=== PATIENT | female | born 1995 | race Caucasian/White ===

== ENCOUNTER 2021-08-05 04:15 | Outpatient (CLI) | payer BC, SELFPAY ==
[2021-08-05 08:49] LABS: HCG Quant, Pregnancy 4644 mIU/mL (1-3)
== END 2021-08-05 04:16 | disposition home or self-care (01) ==
LOC: LBO 04:15
PROVIDERS: PCP Pediatrics; Visit Provider Advanced Practice Midwife
DX: O20.0 Threatened abortion (principal)
CPT/HCPCS: 36415; 86850; 86900; 86901; 84702

== ENCOUNTER 2021-08-28 04:21 | Outpatient (CLI) | payer BC, SELFPAY ==
[2021-08-28 09:52] LABS: HCG Quant, Pregnancy 2 mIU/mL (1-3)
== END 2021-08-28 04:22 | disposition home or self-care (01) ==
LOC: LBO 04:21
PROVIDERS: Obstetrics & Gynecology; PCP Pediatrics; Visit Provider Obstetrics & Gynecology Gynecology
DX: O26.851 Spotting complicating pregnancy, first trimester (principal)
CPT/HCPCS: 36415; 84702

== ENCOUNTER 2022-04-15 03:55 | Outpatient (CLI) | payer BC, SELFPAY ==
[2022-04-15 15:32] LABS: Absolute Eosinophil Count 0.09 10^3/uL (0.0-0.7); Absolute Lymphocyte Count 1.88 10^3/uL (1.2-3.4); Absolute Monocyte Count 0.96 10^3/uL (0.1-0.8); Absolute Neutrophil Count 6.81 10^3/uL (1.2-6.7); Basophils % 0.5; Eosinophils % 0.9; HCT 36.6 % (36.0-46.0); HGB 13.3 g/dL (11.2-15.7); Immature Grans % 0.4; Lymphocytes % 19.1; MCH 30.3 pg (27.0-33.0); MCHC 36.3 % (32.0-36.0); MCV 83 fL (80-95); MPV 10.3 fL (8.0-11.0); Monocytes % 9.8; Neutrophils % 69.3; Platelet Count 219 10^3/uL (130-400); RBC 4.39 10^6/uL (3.93-5.22); RDW 11.7 % (11.7-14.6); RDW-SD 35.6 fL; WBC 9.83 10^3/uL (4.4-10.8)
[2022-04-15 15:33] LABS: Abs Immature Grans 0.04 10^3/uL (0.0-0.06); Absolute Basophil Count 0.05 10^3/uL (0.0-0.2)
[2022-04-15 16:32] LABS: Glucose,1 Hr (Glucola) 111 mg/dL (80-140)
[2022-04-15 17:25] LABS: TSH (W/Ref FT4) 0.86 uIU/mL (0.36-3.74)
[2022-04-16 09:27] LABS: Hepatitis B Surface Ag Negative (Negative)
[2022-04-16 09:49] LABS: HIV-1/2 Ag & Ab Screen Negative (Negative)
[2022-04-16 10:12] LABS: Hepatitis C Ab w Rflx HCV PCR Negative (Negative)
[2022-04-19 12:20] LABS: Varicella IgG Antibody Positive (See Note)
[2022-04-19 12:25] LABS: Rubella IgG Ab (UVM) Positive (See Note)
[2022-04-19 15:12] LABS: Syphilis IgG w/Reflex Nonreactive (Nonreactive)
== END 2022-04-15 03:56 | disposition home or self-care (01) ==
LOC: LBO 03:56
PROVIDERS: PCP Pediatrics; Visit Provider Advanced Practice Midwife
DX: Z34.91 Encounter for supervision of normal pregnancy, unspecified, first trimester
CPT/HCPCS: 36415; 82950; 86787; 86803; 86850; 86900; 86901; 87340; 87389; 84443; 85025; 86762; 86780

== ENCOUNTER 2022-04-15 16:07 | Outpatient (REF) | payer BC, SELFPAY ==
--- NOTE | 2022-04-15 14:30 | PAPFT_PTH ---
PATIENT: Clover Pride LOC: [facility] U#:[id number] AGE/SX: 26/F ROOM: RE04/15/[address]: Kelly Mcmahon : 1995 BED: DIS: 04/15/2022 SPEC #: [id number] RECD: 04/15/22 18:22 STATUS: EMMA REIris #: [id number] SHEYLA: 04/15/22 14:[address]: Kelly Mcmahon DEPT: [facility], [facility] Cytology RECD BY: Della Archer ENTERED: 04/15/22 18:22 SP TYPE: PAPFT EITAN DR: Luis Alfaro III Tissues: 1 - CX/ENDOCX FOR PAP SMEARS Procedures: PAP THIN PREP/UVM Screening Comments: [id number]
[2022-04-18 15:21] LABS: Chlamydia Result Negative (Negative); GC Result Negative (Negative)
[2022-04-21 11:27] LABS: Buprenorphine Negative ng/mL (Cutoff: 5.0); Norbuprenorphine Negative ng/mL (Cutoff: 2.5)
== END 2022-04-15 16:08 | disposition home or self-care (01) ==
LOC: LBN 16:07
PROVIDERS: PCP Pediatrics; Visit Provider Advanced Practice Midwife
DX: Z34.91 Encounter for supervision of normal pregnancy, unspecified, first trimester (principal); Z12.4 Encounter for screening for malignant neoplasm of cervix
CPT/HCPCS: 80307; 87491; 87591; 88142; 87086; 87480; 87510; 87660

== ENCOUNTER 2022-05-03 10:37 | Outpatient (CLI) | payer BC, SELFPAY ==
[2022-05-03 09:29] LABS: HCT 41.1 % (36.0-46.0); HGB 14.4 g/dL (11.2-15.7); MCH 30.3 pg (27.0-33.0); MCV 86 fL (80-95); MPV 10.3 fL (8.0-11.0); Platelet Count 218 10^3/uL (130-400); RBC 4.76 10^6/uL (3.93-5.22); RDW 12.4 % (11.7-14.6); RDW-SD 38.9 fL
--- OUTSIDE RECORDS SUMMARY | 2022-05-03 10:42 | XMS_ITS | Encounter Summary ---
:1995 Author Organization [facility] [place] [address] Care Team Providers Name Role Phone None Primary Care Provider Unavailable Reason for Visit Reason Comments Follow-up Consultation (Routine) - Closed Specialty Diagnoses / Procedures Referred By Contact Refer red To Contact Obstetrics and Diagnoses Family history of other congenital malformations, deformations and chromosomal abnormalities Kelly Mcmahon, [facility] Retail Security Professional 5l Gyne[address] Moss [address] [place] [phone] Referral ID Status Reason Start Date Expiration Date Visits V isits Requested Authorized [id number] Closed Consult, Test 04/15/2022 04/15/2023 1 1 & Treat PCP Updated and/or Approved Encounter Details Date Type Department Care Team Description 04/30/2022 Office Visit Obstetrics and Kamaljit Aquino Spontaneou s at 8 to 28 weeks gestation; Gynecology at [facility] MD Guevara Monochorionic diamniotic twin gestation in first trimester Formerly [facility] [address], [place], [place] [phone] Social History Tobacco Use Types Packs/Day Years Used Date Never Assessed Sex Assigned at Date Recorded Not on file documented as of this encounter Progress Notes Kamaljit Aquino MD - 04/30/2022 11:00 AM EDT Asked by Kelly Mcmahon CNM to see this 26 yo at 13 weeks by firm LMP with twins and hx/opulmonary stenosis for US and M visit. LMP: 01/29/22 POB: 08/2021 - sAB. Had bleeding. To the ED [facility] ED. Uncomplicated. US today: mono/di twins. CRL c/w 11 weeks. Absent cardiac activity for both twins. A/P: Missed in mono/di twins. CRL are lagging behind firm LMP dates by about 2 weeks. Likely embryonic demises from about 2 weeks ago. Alternatively, could be more recent, but preceded by slow growth. Recommend D+C. Would be great to attempt chromosomal evaluation of the products of conception, but significant chance that cells will not grow. MD Adelia Addendum: Discussed with Tish Castro CNM who will arrange for their practice to reach out to the patient to schedule. She reports that the patient is Rh positive. MD Adelia documented in this encounter Plan of Treatment Scheduled Referrals Name Type Priority Associated Diagnoses Order S chedule Referral to Outpatient Referral Routine Family history of Ord ered: Maternal macrocephaly 04/15/2022 Medicine documented as of this encounter Visit Diagnoses Diagnosis Spontaneous at 8 to 28 weeks ge station Monochorionic diamniotic twin gestation in first trimester documented in this encounter Care Teams Wood Heel Back Liner Relationship Specialty Start Date End Date None PCP - General 04/30/22 None documented as of this encounter
--- OUTSIDE RECORDS SUMMARY | 2022-05-03 10:42 | XMS_ITS | Encounter Summary ---
:1995 Author Organization [facility] [place] [address] Care Team Providers Name Role Phone None Primary Care Provider Unavailable Encounter Details Date Type Department Care Team Description 04/30/2022 Hospital Encounter Ultrasound at [facility] Breanna Lozano Twin gestation in [facility] MD Renetta first trimester, [address] [facility] unspecified multiple [place], [place] [address] gestation type [id number] OBSTETRICS & [phone] [place] [address] Social History Tobacco Use Types Packs/Day Years Used Date Never Assessed Sex Assigned at Date Recorded Not on file documented as of this encounter Plan of Treatment Not on filedocumented as of this encounter Procedures Procedure Name Priority Date/Time Associated Diagnosis Comme nts US OB VIABILITY Routine 04/30/2022 10:23 AM Twin gestation in Results for this MULTIPLE EDT first trimester, procedure a re in unspecified multiple the res ults gestation type section. documented in this encounter Results US OB Viability Multiple (04/30/2022 10:23 AM EDT) Anatomical Region Laterality Modality Pelvis Ultrasound Specimen (Source) Anatomical Collection Method Collection Time Re ceived Time Location / / Volume Laterality 04/30/2022 10:20 AM EDT Impressions 04/30/2022 10:35 AM EDT 1st Trimester Embryonic Demise Summary There is a twin gestation, monochorioni c diamniotic. No cardiac activity is seen within either fetus. [place]-rump length also measured small for dates by LMP. Results were discussed with the patient as well as called to the maternal- medicine ana m smith. Patient has an existing appointment following this examination. Thank you for letting us participate in the care of this patient. If you are a [facility] er and have any questions regarding this report, please contact the number above. For patients who have ques tions, please contact the [facility] that requested your imaging first. ? Eamon Serrano, Staff Génesis gao Electronically Signed Final Report ?? 10:34 am Narrative 04/30/2022 10:35 AM EDT OBSTETRICS REPORT ? (Signed Final 04/30/2022 10:34 am) PATIENT INFO: ID #: ? [id number] ?: ??[birth year] (26 yrs)(F) Name: ? NATHAN Santacruz CUTTING ? Visit Date: 04/30/2022 10:20 am PERFORMED BY: Performed By: ? José Miguel Mirza RDMS Attending: ?Zach BRAND, Bailee urbina Resident: ? Lluvia Guy MD Referred By: ?Breanna Ramos Location: ? [place] SERVICE(S) PROVIDED: UOBVIBMULT - Viability < 14 weeks - ??M shelli ? 94[address], [address] Gestation - Transabdominal - [id number] INDICATIONS: Weeks of gestation of not ? Z3A.00 specified twin gestation/ EVALUATION (FETUS A): Num Of Fetuses: ?2 Preg. Location: ?Intrauter ine Gest. Sac: ? Visuali zed Yolk Sac: ?Not vi sualized Pole: ?Visuali zed Cardiac Activity: ?Not observ ed Presentation: ?Too adeline banks to evaluate Placenta: ?Too ea adam to evaluate Membrane Desc: ?Monochorionic - Diamniotic Amniotic Fluid HARRY FV: ?Too early to evaluate BIOMETRY (FETUS A): CRL: ?38.4 ??mm ? G.Age: ?? 10w 5d ?TEOFILO: ?? 11/21/22 EVALUATION (FETUS B): Num Of Fetuses: ?2 Preg. Location: ?Intrauter ine Gest. Sac: ? Visuali zed Yolk Sac: ?Not vi sualized Pole: ?Visuali zed Cardiac Activity: ?Not observ ed Presentation: ?Too adeline y to evaluate Placenta: ?Too ea rly to evaluate Membrane Desc: ?Monochorionic - Diamniotic Amniotic Fluid HARRY FV: ?Too early to evaluate BIOMETRY (FETUS B): CRL: ?41.0 ??mm ? G.Age: ?? 11w 0d ?TEOFILO: ?? 11/19/22 CERVIX UTERUS ADNEXA: Right Ovary Size(cm) ? 2.6 ??x ?? 1.2 ?x ??1.4 ? Vol(ml): ??2.3 Visualized Left Ovary Size(cm) ? 1.4 ??x ?? 1.7 ?x ??2.2 ? Vol(ml): ??2.7 Visualized Cul De Sac No fluid seen Procedure Note Eamon Serrano MD - 04/30/2022Format ting of this note might be different from the original. OBSTETRICS REPORT (Signed Final 022 10:34 am) PATIENT INFO: ID #: [id number] : [birth year] (26 y rs)(F) Name: NATHAN Santacruz LAURA Visit Date: 04/03 10:20 am PERFORMED BY: Performed By: Cecile Mirza RDMS Attending: Eamon Serrano MD Resident: Lluvia Guy MD Referred By: Breanna LOZANO Location: [place] SERVICE(S) PROVIDED: UOBVIBMULT - Viability < 14 weeks - Rupinder tiple 20222, [address] Gestation - Transabdominal - [id number] INDICATIONS: Weeks of gestation of not Z3A .00 specified twin gestation/ EVALUATION (FETUS A): Num Of Fetuses: 2 Preg. Location: Intrauterine Gest. Sac: Visualized Yolk Sac: Not visualized Pole: Visualized Cardiac Activity: Not observed Presentation: Too early to evaluate Placenta: Too early to evaluate Membrane Desc: Monochorionic - Diamniot ic Amniotic Fluid HARRY FV: Too early to evaluate BIOMETRY (FETUS A): CRL: 38.4 mm G.Age: 10w 5d TEOFILO: 3 EVALUATION (FETUS B): Num Of Fetuses: 2 Preg. Location: Intrauterine Gest. Sac: Visualized Yolk Sac: Not visualized Pole: Visualized Cardiac Activity: Not observed Presentation: Too early to evaluate Placenta: Too early to evaluate Membrane Desc: Monochorionic - Diamniot ic Amniotic Fluid HARRY FV: Too early to evaluate BIOMETRY (FETUS B): CRL: 41.0 mm G.Age: 11w 0d TEOFILO: 3 CERVIX UTERUS ADNEXA: Right Ovary Size(cm) 2.6 x 1.2 x 1.4 Vol(ml): 2.3 Visualized Left Ovary Size(cm) 1.4 x 1.7 x 2.2 Vol(ml): 2.7 Visualized Cul De Sac No fluid seen IMPRESSION 1st Trimester Embryonic Demise Summary There is a twin gestation, monochorioni c diamniotic. No cardiac activity is seen within either fetus. [place]-rump length also measured small for dates by LMP. Results were discussed with the patient as well as called to the maternal- medicine ana m smith. Patient has an existing appointment following this examination. Thank you for letting us participate in the care of this patient. If you are a [facility] er and have any questions regarding this report, please contact the number above. For patients who have ques tions, please contact the [facility] professio nal that requested your imaging first. Eamon Serrano, Staff Physician Electronically Signed Final Report 04/30 10:34 am E Renetta Lozano MD [facility] OB ORDERABLES documented in this encounter Visit Diagnoses Diagnosis Twin gestation in first trimester, unspe cified multiple gestation type documented in this encounter Care Teams Mobile Sales Expert Relationship Specialty Start Date End Date None PCP - General 04/30/22 None documented as of this encounter
--- OUTSIDE RECORDS SUMMARY | 2022-05-03 10:42 | XMS_ITS | Encounter Summary ---
:1995 Author Organization [facility] [place] [address] Care Team Providers Name Role Phone Angelina CRAIG MD, Luis Carlos Primary Care Provider [phone] Reason for Referral Consultation (Routine) - Closed Specialty Diagnoses / Procedures Referred By Contact Refer red To Contact Obstetrics and Diagnoses Family history of other congenital malformations, deformations and chromosomal abnormalities Kelly Mcmahon, [facility] [place] Head Nurse 5l Gynecology CNM [address] [place] [id number] Referral ID Status Reason Start Date Expiration Date Visits V isits Requested Authorized [id number] Closed Consult, Test 04/15/2022 04/15/2023 1 1 & Treat PCP Updated and/or Approved Encounter Details Date Type Department Care Team Description 04/15/2022 Transcribe Orders eDH Incoming Family Salome his tory of Referrals MESSI Mendoza macrocephaly [phone] [place] [address] [address] [place], [place] [phone] Social History Tobacco Use Types Packs/Day Years Used Date Never Assessed Sex Assigned at Date Recorded Not on file documented as of this encounter Plan of Treatment Scheduled Referrals Name Type Priority Associated Diagnoses Order S chedule Referral to Outpatient Referral Routine Family history of Ord ered: Maternal macrocephaly 04/15/2022 Medicine documented as of this encounter Visit Diagnoses Diagnosis Family history of macrocephaly documented in this encounter Care Teams Cold Saw Operator Relationship Specialty Start Date End Date Luis Alfaro III, MD PCP - General Pediatrics 04/15/22 04/29/[address] [place] [address] [place] [address] documented as of this encounter
--- OUTSIDE RECORDS SUMMARY | 2022-05-03 10:42 | XMS_ITS | Encounter Summary ---
:1995 Author Organization [facility] Address [facility] [place] [address] Care Team Providers Name Role Phone Angelina CRAIG MD, Luis Carlos Primary Care Provider Encounter Details Date Type Department Care Team Description 04/16/2022 Orders Only Obstetrics and Pschirrer, E Twin gestatio n in Gynecology at [facility] MD Renetta first trimester, [facility] uns pecified [place] [phone] OBSTETRICS & [phone] GYNECOLOGY [place] [id number] Social History Tobacco Use Types Packs/Day Years Used Date Never Assessed Sex Assigned at Date Recorded Not on file documented as of this encounter Plan of Treatment Not on filedocumented as of this encounter Results US OB Viability Multiple (04/30/2022 10:23 AM EDT) Anatomical Region Laterality Modality Pelvis Ultrasound Specimen (Source) Anatomical Collection Method Collection Time Re ceived Time Location / / Volume Laterality 04/30/2022 10:20 AM EDT Impressions 04/30/2022 10:35 AM EDT 1st Trimester Embryonic Demise Summary There is a twin gestation, monochorioni c diamniotic. No cardiac activity is seen within either fetus. [place]-rump length also measured small for dates by LMP. Results were discussed with the patient as well as called to the maternal- medicine ana m smith. Patient has an existing appointment following this examination. Thank you for letting us participate in the care of this patient. If you are a health care [facility] er and have any questions regarding this report, please contact the number above. For patients who have ques tions, please contact the [facility] that requested your imaging first. ? Eamon Serrano, Staff Génesis gao Electronically Signed Final Report ?? 10:34 am Narrative 04/30/2022 10:35 AM EDT OBSTETRICS REPORT ? (Signed Final 04/30/2022 10:34 am) PATIENT INFO: ID #: ? [id number] ?: ??[birth year] (26 yrs)(F) Name: ? NATHAN Santacruz CUTTING ? Visit Date: 04/30/2022 10:20 am PERFORMED BY: Performed By: ? José Miguel Mirza RDMS Attending: ?Zach BRAND, Bailee urbina Resident: ? Malena BRAND, [place] Referred By: ?Breanna CABEZAS [facility] Location: ? [place] SERVICE(S) PROVIDED: UOBVIBMULT - Viability < 14 weeks - ??M shelli ? 75050, [address]70 Gestation - Transabdominal - [id number] INDICATIONS: Weeks of gestation of not ? Z3A.00 specified twin gestation/ EVALUATION (FETUS A): Num Of Fetuses: ?2 Preg. Location: ?Intrauter ine Gest. Sac: ? Visuali zed Yolk Sac: ?Not vi sualized Pole: ?Visuali zed Cardiac Activity: ?Not observ ed Presentation: ?Too adeline banks to evaluate Placenta: ?Too sandeep medina to evaluate Membrane Desc: ?Monochorionic - Diamniotic [...] 022 10:34 am) PATIENT INFO: ID #: [id number] : [birth year] (26 y rs)(F) Name: NATHAN SANCHEZ Visit Date: 04/03 10:20 am PERFORMED BY: Performed By: Cecile Mirza RDMS Attending: Eamon Serrano MD Resident: Lluvia Guy MD Referred By: Breanna LOZANO Location: [place] SERVICE(S) PROVIDED: UOBVIBMULT - Viability < 14 weeks - Rupinder lamb [address]67[address], [address] Gestation - Transabdominal - [id number] INDICATIONS: Weeks of gestation of not Z3A [...] cardiac activity is seen within either fetus. [place]-rump length also measured small for dates by LMP. Results were discussed with the patient as well as called to the maternal- medicine ana m smith. Patient has an existing appointment following this examination. Thank you for letting us participate in the care of this patient. If you are a [facility] er and have any questions regarding this report, please contact the number above. For patients who have ques tions, please contact the [facility] profess[facility] nal that requested your imaging first. Eamon Serrano, Staff Physician Electronically Signed Final Report 04/30 10:34 am E Renetta [facility]oz[facility] documented in this encounter Visit Diagnoses Diagnosis Twin gestation in first trimester, unspe cified multiple gestation type Twin gestation in first trimester, unspe cified multiple gestation type documented in this encounter Care Teams Technical Support Assistant Relationship Specialty Start Date End Date Luis Alfaro III, MD PCP - General Pediatrics 04/15/22 04/29/[address] [place] [address] [place] [address] documented as of this encounter
--- OUTSIDE RECORDS SUMMARY | 2022-05-03 10:42 | XMS_ITS | Clinical Summary ---
:1995 Author Organization [facility] [place] [address] Care Team Providers Name Role Phone None Primary Care Provider Unavailable Allergies No known active allergies Encounters Date Type Specialty Care Team Description 04/30/2022 Office Visit Obstetrics and Kamaljit Aquinoou s at 8 to 28 weeks gestation; Gynecology MD Guevara Monochorionic d iamniotic twin gestation in first trimester 04/30/2022 Hospital Encounter Radiology Pschirrpooja, E Twin gest ation in MD Jocelynn first trimester , unspecified mul tiple gestation type 04/16/2022 Orders Only Obstetrics and Pscregina E Twin gestatio n in Gynecology MD Jocelynn first trimester , unspecified mul tiple gestation type 04/15/2022 Transcribe Orders Primary Care Salome Family his tory of Kelly, MESSI macrocephaly from Last 3 Months Social History Tobacco Use Types Packs/Day Years Used Date Never Assessed Sex Assigned at Date Recorded Not on file Plan of Treatment Health Maintenance Due Date Last Done Comments Covid-19 Vaccine (#1) 10/23/2000 HPV vaccine (1 - 2-dose series) 10/23/2006 HIV screen 10/23/2013 Hepatitis C Screening 10/23/2013 Tdap adult 10/23/2014 Tetanus vaccine 10/23/2014 PAP Smear 10/23/2016 Influenza (Flu) vaccine (1 of 1 - Influenza standard 04/01/2022 series) Procedures Procedure Name Priority Date/Time Associated Diagnosis Comme nts US OB VIABILITY Routine 04/30/2022 10:23 AM Twin gestation in Results for this MULTIPLE EDT first trimester, procedure a re in unspecified multiple the res ults gestation type section. from Last 3 Months Results US OB Viability Multiple (04/30/2022 10:23 AM EDT) Anatomical Region Laterality Modality Pelvis Ultrasound Specimen (Source) Anatomical Collection Method Collection Time Re ceived Time Location / / Volume Laterality 04/30/2022 10:20 AM EDT Impressions 04/30/2022 10:35 AM EDT 1st Trimester Embryonic Demise Summary There is a twin gestation, monochorioni c diamniotic. No cardiac activity is seen within either fetus. [place]-rump length also measured small for dates by LMP. Results were discussed with the patient as well as called to the maternal- medicine ana m smith. Patient has an existing appointment following this examination. Thank you for letting us participate in the care of this patient. If you are a [facility] er and have any questions regarding this report, please contact the number above. For patients who have ques tions, please contact the [facility] professio nal that requested your imaging first. ? Eamon Serrano, Staff Génesis gao Electronically Signed Final Report ?? 10:34 am Narrative 04/30/2022 10:35 AM EDT OBSTETRICS REPORT ? (Signed Final 04/30/2022 10:34 am) PATIENT INFO: ID #: ? [id number] ?: ??[birth year] (26 yrs)(F) Name: ? NATHAN Santacruz CUTTING ? Visit Date: 04/30/2022 10:20 am PERFORMED BY: Performed By: ? José Miguel Mirza RDMS Attending: ?Zach BRAND, Bailee urbina Resident: ? Malena BRAND, Lluvia Referred By: ?E JOCELYNN Lynn: ? [place] SERVICE(S) PROVIDED: UOBVIBMULT - Viability < 14 weeks - ??Neeta mraques ? [address], [address] Gestation - Transabdominal - [id number] INDICATIONS: Weeks of gestation of not ? [...] adeline banks to evaluate Placenta: ?Too ea rly to [...] 022 10:34 am) PATIENT INFO: ID #: [id number] : [birth year] (26 y rs)(F) Name: NATHAN SANCHEZ Visit Date: 04/03 10:20 am PERFORMED BY: Performed By: Cecile Mirza RDMS Attending: Eamon Serrano MD Resident: Lluvia Guy MD Referred By: Breanna CAB[facility]AS [facility] Location: [place] SERVICE(S) PROVIDED: UOBVIBMULT - Viability < 14 weeks - Rupinder wilsonle [address], [address] Gestation - Transabdominal - [id number] INDICATIONS: Weeks of gestation of not Z3A [...] cardiac activity is seen within either fetus. [place]-rump length also measured small for dates by LMP. Results were discussed with the patient as well as called to the maternal- medicine ana m smith. Patient has an existing appointment following this examination. Thank you for letting us participate in the care of this patient. If you are a [facility] er and have any questions regarding this report, please contact the number above. For patients who have ques tions, please contact the [facility] that requested your imaging first. Eamon Serrano, Staff Physician Electronically Signed Final Report 04/30 10:34 am E Jocelynn Cabrera MD IMG US OB ORDERABLES from Last 3 Months Insurance Payer Benefit Plan Subscriber ID Effective Dates Phone Address Type / Group [facility] [id number] 2021-Pres [phone] [address] [facility] [facility] ent [address] [facility] [id number] Care Teams Refuse Laborer Relationship Specialty Start Date End Date None PCP - General 04/30/22 None
--- OUTSIDE RECORDS SUMMARY | 2022-05-03 10:43 | XMS_ITS | Encounter Summary ---
:1995 Author Organization [facility] Address [address] [place] [address] Care Team Providers Name Role Phone Barb Corrales MD Primary Care Provider Encounter Details Date Type Department Care Team Description 11/17/2020 Lab Requisition [facility] Outr Resulting Lab, Pathology & Laboratory Provider [facility] [address] [place] [phone] Social History Tobacco Use Types Packs/Day Years Used Date Never Assessed Sex Assigned at Date Recorded Not on file documented as of this encounter Plan of Treatment Not on filedocumented as of this encounter Procedures Procedure Name Priority Date/Time Associated Comments Diagnosis CHLAMYDIA/N. Routine 11/17/2020 15:26 Results for this GONORRHOEAE AMPLIFIED EDT proced ure are in RNA, THINPREP the results section. documented in this encounter Results CHLAMYDIA/N. GONORRHOEAE AMPLIFIED RNA, THINPREP (11/17/2020 15:26 EDT) Pathologist Sig nature Gonococcus Result Negative Negative [facility] Chlamydia Result Negative Negative [facility] Specimen Pap Test - Cervix and/or Endocervix Performing Organization Address City/State/ZIP Code Phon e Number [facility] [address] [place] [address] SERVICES documented in this encounter Visit Diagnoses Not on filedocumented in this encounter Care Teams Log Chain Feeder Relationship Specialty Start Date End Date Barb Corrales MD PCP - General 11/09/[address] [place] [phone] documented as of this encounter
--- OUTSIDE RECORDS SUMMARY | 2022-05-03 10:43 | XMS_ITS | Encounter Summary ---
:1995 Author Organization [facility] Address [address] [place] [address] Care Team Providers Name Role Phone Barb Corrales MD Primary Care Provider Encounter Details Date Type Department Care Team Description 04/13/1999 Hospital Encounter [facility] MD Todd [address] [facility] [address] [place], [place] [id number] [place] [phone] (Wo rk) Social History Tobacco Use Types Packs/Day Years Used Date Never Assessed Sex Assigned at Date Recorded Not on file documented as of this encounter Plan of Treatment Not on filedocumented as of this encounter Visit Diagnoses Not on filedocumented in this encounter Care Teams Solo Truck Driver Relationship Specialty Start Date End Date Barb Corrales MD PCP - General 11/09/[address] [place] [phone] documented as of this encounter
--- OUTSIDE RECORDS SUMMARY | 2022-05-03 10:43 | XMS_ITS | Encounter Summary ---
:1995 Author Organization [facility] Address [address] [place] [address] Care Team Providers Name Role Phone Barb Corrales MD Primary Care Provider Encounter Details Date Type Department Care Team Description 04/15/2022 Lab Requisition [facility] Outr Resulting Lab, Pathology & Laboratory Provider [facility] [address] [place] [address] [phone] Social History Tobacco Use Types Packs/Day Years Used Date Never Assessed Sex Assigned at Date Recorded Not on file documented as of this encounter Plan of Treatment Not on filedocumented as of this encounter Procedures Procedure Name Priority Date/Time Associated Comments Diagnosis HIV 1/2 ANTIGEN AND Routine 04/15/2022 15:20 Resu lts for this ANTIBODY, 4TH EDT procedure are in GENERATION the results section. documented in this encounter Results HIV 1/2 ANTIGEN AND ANTIBODY, 4TH GENERATION (04/15/2022 15:20 EDT) HIV 1 and 2 NegativeComment: If Negative [facility] Antibody/p24 acute HIV-1 LABORATORY Antigen, 4th infection is SERVICES Generation suspected in a high risk patient, submit plasma specimen for HIV-1 RNA quantitation test. Specimen Blood - Venous blood (substance) Narrative [facility] - 04/16/2022 9:45 EDT Fourth Generation assay performed on the Siemens Centaur XPT. Performing Organization Address City/State/ZIP Code Phon e Number [facility] [address] [place] [address] SERVICES documented in this encounter Visit Diagnoses Not on filedocumented in this encounter Care Teams Fondant Machine Operator Relationship Specialty Start Date End Date Barb Corrales MD PCP - General 11/09/[address] [place] [phone] documented as of this encounter
--- OUTSIDE RECORDS SUMMARY | 2022-05-03 10:43 | XMS_ITS | Clinical Summary ---
:1995 Author Organization [facility] Address [address] [place] [address] Care Team Providers Name Role Phone Barb Corrales MD Primary Care Provider Encounters Date Type Specialty Care Team Description 04/16/2022 Lab Requisition Clinical Laboratory Kelly Mcmahon Encounter for other Radha, MESSI general examina tion 04/16/2022 Lab Requisition Clinical Laboratory Outr Resulting Lab, Provider 04/16/2022 Lab Requisition Clinical Laboratory Outr Resulting Lab, Provider 04/15/2022 Lab Requisition Clinical Laboratory Outr Resulting Lab, Provider 04/15/2022 Lab Requisition Clinical Laboratory Outr Resulting Lab, Provider from Last 3 Months Social History Tobacco Use Types Packs/Day Years Used Date Never Assessed Sex Assigned at Date Recorded Not on file Plan of Treatment Health Maintenance Due Date Last Done Comments COVID-19 Vaccine (#1) 04/25/1996 Hepatitis C Screen Completed 04/15/2022 Procedures Procedure Name Priority Date/Time Associated Diagnosis Comme nts HOLD SST Today 04/15/2022 15:20 Results for this EDT procedure are i n the results section. VARICELLA IGG Today 04/15/2022 15:20 Results fo r this ANTIBODY EDT procedure are i n the results section. RUBELLA IGG ANTIBODY Today 04/15/2022 15:20 Res ults for this EDT procedure are i n the results section. HEPATITIS B SURFACE Routine 04/15/2022 15:20 Resu lts for this ANTIGEN EDT procedure are i n the results section. HEPATITIS C AB W Routine 04/15/2022 15:20 Results for this REFLEX TO HCV RNA BY EDT procedu re are in PCR the results section. HIV 1/2 ANTIGEN AND Routine 04/15/2022 15:20 Resu lts for this ANTIBODY, 4TH EDT procedure are in GENERATION the results section. PAP TEST Today 04/15/2022 14:30 Encounter for other Resu lts for this EDT general examination procedur e are in the results section. CHLAMYDIA/N. Routine 04/15/2022 14:30 Results for this GONORRHOEAE EDT procedure are i n AMPLIFIED RNA the results section. from Last 3 Months Results HOLD SST (04/15/2022 15:20 EDT) Pathologist Sig nature Hold Hold [facility] Specimen Blood - Venous blood (substance) Performing Organization Address City/[facility]/ZIP Code Phon e Number [facility] [address] [place] [address] SERVICES HEPATITIS C AB W REFLEX TO HCV RNA BY PCR (04/15/2022 15:20 EDT) Pathologist Sig nature Hep C Antibody Negative Negative [facility] SERVICES Specimen Blood - Venous blood (substance) Performing Organization Address City/[facility]/ZIP Code Phon e Number [facility] [address] [place] [address] SERVICES RUBELLA IGG ANTIBODY (04/15/2022 15:20 EDT) Rubella IgG Ab PositiveComment: See Note [facility] Positive for IgG LABORATORY SERVICES antibodies to Rubella virus. Specimen Blood - Venous blood (substance) Performing Organization Address City/[facility]/ZIP Code Phon e Number [facility] [address] [place] [address] SERVICES HEPATITIS B SURFACE ANTIGEN (04/15/2022 15:20 EDT) Pathologist Sig nature Hep B Surface Ag Negative Negative [facility] Specimen Blood - Venous blood (substance) Performing Organization Address City/[facility]/ZIP Code Phon e Number [facility] [address] [place] [address] SERVICES VARICELLA IGG ANTIBODY (04/15/2022 15:20 EDT) Varicella IgG Ab PositiveComment: See Note [facility] Presence of LABORATORY SERVICES detectable Varicella Zoster virus IgG antibodies. Specimen Blood - Venous blood (substance) Performing Organization Address City/[facility]/ZIP Code Phon e Number [facility] [address] [place] [address] SERVICES HIV 1/2 ANTIGEN AND ANTIBODY, 4TH GENERATION (04/15/2022 15:20 EDT) HIV 1 and 2 NegativeComment: If Negative [facility] Antibody/p24 acute HIV-1 LABORATORY Antigen, 4th infection is SERVICES Generation suspected in a high risk patient, submit plasma specimen for HIV-1 RNA quantitation test. Specimen Blood - Venous blood (substance) Narrative [facility] - 04/16/2022 9:45 EDT Fourth Generation assay performed on the Siemens Centaur XPT. Performing Organization Address City/[facility]/ZIP Code Phon e Number [facility] [address] [place] [address] SERVICES PAP TEST (04/15/2022 14:30 EDT) Specimens A. Cervix and/or [facility] MEDICAL Endocervix , ThinPrep CENTER Imaging System with LABORATORY Manual Evaluation SERVICES Specimen Adequacy Satisfactory for [facility] MEDICAL Evaluation - CENTER transformation zone LABORATORY component present SERVICES General Negative for [facility] intraepithelial CENTER lesion or malignancy LABORATORY SERVICES Descriptive Shift in jessy [facility] MEDICAL Diagnosis present suggestive of CENTER bacterial vaginosis. LABORATORY SERVICES Attestation . [facility] signed by JAY Gagnon CT(ASCP) on SERVICES 04/19/2022 at 16 33 Clinical History See below [facility] Performing Lab [facility] Scanned Images [facility] Specimen Pap Test - Cervix and/or Endocervix Performing Organization Address City/State/ZIP Code Phon e Number [facility] [address] [place] [address] SERVICES CHLAMYDIA/N. GONORRHOEAE AMPLIFIED RNA (04/15/2022 14:30 EDT) Pathologist Sig nature Gonococcus Result Negative Negative [facility] Chlamydia Result Negative Negative [facility] Specimen Swab - Entire endocervix (body structure ) Performing Organization Address City/State/ZIP Code Phon e Number [facility] [address] [place] [address] SERVICES from Last 3 Months Insurance Payer Benefit Plan / Subscriber ID Effective Phone Address T ype Group Dates BCBS OOS [employer]BS [place] [id number] 2018-[facility]se [facility] Other [address] [place] [address] Advance Directives For more information, please contact: [phone] Documents on File Type Date Recorded Patient Reference Investigator Explanati on Advance Directives and Living Will Power of Experimental Rocket Sled Mechanic Care Teams Equipment Operat0R Relationship Specialty Start Date End Date Barb Corrales MD PCP - General 11/09/[address] [place] [phone]
--- OUTSIDE RECORDS SUMMARY | 2022-05-03 10:43 | XMS_ITS | Encounter Summary ---
:1995 Author Organization [facility] Address [address] [place] [address] Care Team Providers Name Role Phone Unavailable Primary Care Provider Unavailable Encounter Details Date Type Department Care Team Description 12/07/2007 Before PRISM Converted [facility] - Edvin Chen Visit (Maple) Maple conversion MD Todd [address] [facility] [address] [place], [place] [id number] [place] [phone] Social History Tobacco Use Types Packs/Day Years Used Date Never Assessed Sex Assigned at Date Recorded Not on file documented as of this encounter Progress Notes Alen Chen MD - 04/28/2009 1513 EDT PROGRESS/FOLLOWUP NOTE - 12/07/2007 December 07, 2007 Luis Alfaro MD [address] [place], [place] [id number] Dear Nacho: I saw Clover on December 07, 2007 in our [facility] clinic. 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 She presented with a murmur, and an echocardiogram done in 2000 showed a very minor gradient across the pulmonary valve with a little more pulmonary regurgitation than normal, but no other abnormalities noted. Since she was last seen, she has continued to be in excellent health. She is physically active and participates in softball and basketball. She says she kept up well during basketball season and had nodifficulty with more vigorous exertion. She does not have a history of chronic coughing, wheezing, or other respiratory problems. She denies chest pain, palpitations, dizziness or fainting. She has hadno cyanosis or pallor noted. She has been on no medications routinely. She came to [facility] withher father, who has no concerns about her general health. She is currently in the sixth grade and doing well in school. On physical examination today, her height was 160.4 cm, and her weight 58.3 kg. Her blood pressure was 120/61 in the right arm. Her pulse was 68, and her resting respiratory rate was 16. Her femoral pulses felt normal and her liver was not enlarged. No abdominal masses were appreciated. Her precordiumwas quiet.Her lungs were clear. Her neck veins were not distended. Her lips and nail beds were pink.I did not think her thyroid felt enlarged. She had no clubbing or peripheral edema. She had a normalfirst heart sound, followed by a soft variable ejection click.Her second heart sound split normally.She had virtually no murmur. Her electrocardiogram showed what was probably sinus rhythm, with normal precordial forces and some left-sided T-wave flattening. 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 Basedon new recommendations, she would no longer need SBE prophylaxis prior to dental procedures. I wouldlike a final listen in about 4-5 years, but would anticipate discharging her from clinic at that time. I think it is unlikely that her minor valve abnormality will ever be a clinical problem for her and it is not likely to change with time. All of this information was conveyed to Clover and her father. If you have any questions about [facility] visit or have any concerns about her examination in the future do not hesitate to let us know. Total time spent with patient was 25 minutes; over 50% of the time was spent face to face on counseling and managing her care as described above. Sincerely, Signed by Alen Chen MD 12/08/2007 08:46 Alen Chen MD Division of Pediatric Cardiology [phone] - Alen Chen MD P - DIS Job ID: [id number] Doc ID: [id number] cc: Luis Alfaro MD documented in this encounter Plan of Treatment Not on filedocumented as of this encounter Visit Diagnoses Not on filedocumented in this encounter
--- OUTSIDE RECORDS SUMMARY | 2022-05-03 10:43 | XMS_ITS | Encounter Summary ---
:1995 Author Organization [facility] Address [address] [place] [address] Care Team Providers Name Role Phone Barb Corrales MD Primary Care Provider Encounter Details Date Type Department Care Team Description 10/19/2019 [facility] examination (general) (routine) without abnormal findings; Pathology & Migel Orta MD Encounter for screening for infections w ith a predominantly sexual mode of transmission; Laboratory Medicine 81 MEDICAL Encoun r for screening for other infectious and parasitic diseases; - [facility] Encounter for screening for human papill omavirus (HPV) [address] [place] [phone] Social History Tobacco Use Types Packs/Day Years Used Date Never Assessed Sex Assigned at Date Recorded Not on file documented as of this encounter Plan of Treatment Not on filedocumented as of this encounter Procedures Procedure Name Priority Date/Time Associated Comments Diagnosis PAP TEST Today 10/19/2019 16:16 Results for this EDT procedure are i n the results section. HUMAN PAPILLOMAVIRUS Today 10/19/2019 16:16 Res ults for this (HPV) DETECTION-HIGH EDT procedu re are in RISK TYPES the results section. documented in this encounter Results HUMAN PAPILLOMAVIRUS (HPV) DETECTION-HIGH RISK TYPES (10/19/2019 16:16 EDT) Human Papillomavirus NegativeComment: No Negative [facility] MED[facility] (HPV) Detection-High E6 or E7 mRNA is CENTER LABORATOR Y Types detected from HPV SERVICES types 16,18,31,33,35,39,45 ,51,52,56,58,59,66, and 68 by roving or yarn color checker mediated amplification. Specimen Pap Test - Cervix and/or Endocervix Performing Organization Address City/[facility]/ZIP Code Phon e Number [facility] [address] [place] [address] SERVICES PAP TEST (10/19/2019 16:16 EDT) Specimens A. Cervix and/or [facility] MEDICAL Endocervix, ThinPrep CENTER Imaging System with LABORATORY Manual Evaluation SERVICES Specimen Adequacy Satisfactory for [facility] MEDICAL Evaluation - CENTER transformation zone LABORATORY component present SERVICES General Epithelial Cell [facility] MEDICAL Categorization Abnormality CENTER LABORATORY SERVICES Descriptive Squamous Cell [facility] MEDICAL Diagnosis Abnormality - CENTER Atypical squamous LABORATORY cells, undetermined SERVICES significance (ASC-US). Attestation . [facility] CENTER signed by LABORATORY Brenden Arriaga MD on 020 at 1412 Educational Comments [facility] recommends following A SCCP's 2012 Updated Consensus Guidelines for the Management of Abnormal Cervical Cancer Screening Tests and Cancer Precursors (JLGTD, 2013; 17(5):S1-S27). Consensus guidelines are available online at www.asccp.org. [facility] Clinical History see order comments [facility] HPV The result for the Human Pap illomavirus (HPV) Detection-High Risk Types is Negative. No E6 or E7 mRNA is detected from HPV types 16,18,31,33,35,39,45,51,52,56,58,59,66, and 68 by roving or yarn color checker mediated [facility] MEDICAL amplification.Testing was pe rformed on specimen [id number] and was resulted on 10/30/2019 1410 EDT by TO, LAB INSTRUMENT RESULTS IN [facility] Scanned Images [facility] Specimen Pap Test - Cervix and/or Endocervix Performing Organization Address City/[facility]/ZIP Code Phon e Number [facility] [address] [place] [address] SERVICES documented in this encounter Visit Diagnoses Diagnosis Encounter for gynecological examination (general) (routine) without abnormal findings Encounter for screening for infections w ith a predominantly sexual mode of transmission Encounter for screening for other infect ious and parasitic diseases Encounter for screening for human papill omavirus (HPV) Special screening examination for human papillomavirus (HPV) documented in this encounter Care Teams Director Of Scout Work Relationship Specialty Start Date End Date Barb Corrales MD PCP - General 11/09/[address] [place] [phone] documented as of this encounter
--- OUTSIDE RECORDS SUMMARY | 2022-05-03 10:43 | XMS_ITS | Encounter Summary ---
:1995 Author Organization [facility] Address [address] [place] [address] Care Team Providers Name Role Phone Barb Corrales MD Primary Care Provider Encounter Details Date Type Department Care Team Description 04/16/2022 Lab Requisition [facility] Outr Resulting Lab, Pathology & Laboratory Provider [facility] [address] [place], [place] [phone] Social History Tobacco Use Types Packs/Day Years Used Date Never Assessed Sex Assigned at Date Recorded Not on file documented as of this encounter Plan of Treatment Not on filedocumented as of this encounter Procedures Procedure Name Priority Date/Time Associated Comments Diagnosis CHLAMYDIA/N. Routine 04/15/2022 14:30 Results for this GONORRHOEAE AMPLIFIED EDT proced ure are in RNA the results section. documented in this encounter Results CHLAMYDIA/N. GONORRHOEAE AMPLIFIED RNA (04/15/2022 14:30 EDT) Pathologist Sig nature Gonococcus Result Negative Negative [facility] Chlamydia Result Negative Negative [facility] Specimen Swab - Entire endocervix (body structure ) Performing Organization Address City/State/ZIP Code Phon e Number [facility] [address] [place] [address] SERVICES documented in this encounter Visit Diagnoses Not on filedocumented in this encounter Care Teams Women Nurse Relationship Specialty Start Date End Date Barb Corrales MD PCP - General 11/09/[address] [place] [phone] (work) documented as of this encounter
--- OUTSIDE RECORDS SUMMARY | 2022-05-03 10:43 | XMS_ITS | Encounter Summary ---
:1995 Author Organization [facility] Address [address] [place] [address] Care Team Providers Name Role Phone Barb Corrales MD Primary Care Provider Encounter Details Date Type Department Care Team Description 11/17/2020 Lab Requisition [facility] [address] ter for gynecological examination (general) (routine) without abnormal findings; Pathology & Migel Orta MD Encounter for screening for human papill omavirus (HPV); Laboratory Medicine 81 MEDICAL Cervical high risk human papillomavirus (HPV) DNA test positive - [facility] [address] [place] [phone] Social History Tobacco Use Types Packs/Day Years Used Date Never Assessed Sex Assigned at Date Recorded Not on file documented as of this encounter Plan of Treatment Not on filedocumented as of this encounter Procedures Procedure Name Priority Date/Time Associated Diagnosis Comme nts PAP TEST Today 11/17/2020 15:26 EDT Results for this procedure are i n the results section . documented in this encounter Results PAP TEST (11/17/2020 15:26 EDT) Specimens A. Cervix and/or [facility] Endocervix , ThinPrep CENTER Imaging System with LABORATORY Manual Evaluation SERVICES Specimen Adequacy Satisfactory for [facility] Evaluation - CENTER transformation zone LABORATORY component present SERVICES General Negative for [facility] MEDICAL Categorization intraepithelial CENTER lesion or malignancy LABORATORY SERVICES Descriptive Shift in jessy [facility] Diagnosis present suggestive of CENTER bacterial vaginosis. LABORATORY SERVICES Attestation . [facility] Electron[facility] CENTER signed by Jesus urbina LABORATORY GIOVANNI Townsend(A SCP) SERVICES on 11/21/2020 at 1247 Clinical History Clinical History, Signs, Sym ptoms, Chief Complaint, Pertaining to This Order: See below [facility] Other Clinical History/Order Comments: 10/18 /+ CENTER LABORATORY SERVICES Performing Lab [facility] Scanned Images [facility] SERVICES Specimen Pap Test - Cervix and/or Endocervix Performing Organization Address City/State/ZIP Code Phon e Number [facility] [address] [place] [address] SERVICES documented in this encounter Visit Diagnoses Diagnosis Encounter for gynecological examination (general) (routine) without abnormal findings Encounter for screening for human papill omavirus (HPV) Special screening examination for human papillomavirus (HPV) Cervical high risk human papillomavirus (HPV) DNA test positive documented in this encounter Care Teams Top Collar Baster Relationship Specialty Start Date End Date Barb Corrales MD PCP - General 11/09/[address] [place] [phone] documented as of this encounter
--- OUTSIDE RECORDS SUMMARY | 2022-05-03 10:43 | XMS_ITS | Encounter Summary ---
:1995 Author Organization [facility] Address [address] [place] [address] Care Team Providers Name Role Phone Barb Corrales MD Primary Care Provider Encounter Details Date Type Department Care Team Description 11/11/2011 Documentation Visit [facility] Edvin Chen Pediatric Cardiology - MD Todd [place] [address] [place] [address] [phone] (Wo rk) Social History Tobacco Use Types Packs/Day Years Used Date Never Assessed Sex Assigned at Date Recorded Not on file documented as of this encounter Progress Notes Alen Chen MD - 11/12/2011 1056 EDT PROGRESS/FOLLOWUP NOTE - 11/11/2011 Luis Alfaro MD [address] [place] [phone] Dear Nacho: I saw Clover on 11/11/2011. She is now a 16-year-old who I have seen since infancy when she presentedwith mild valvar pulmonic stenosis. Interestingly, over the first few years of life, her estimated gradient across her pulmonary valve decreased. When last seen 4 years ago, she had virtually no murmurand had no evidence of significant residual hemodynamic abnormalities. In the interim, she continues to be in excellent health. She is an active girl who participates in basketball and softball without difficulty. She played basketball this winter and had no difficulty keeping up with her teammates. Specifically, she does not feel that she gets unusually tired or short of breath with routine activity or with significant exertion. She has had no chronic coughing, wheezing or other respiratory difficulties. She denies chest pain, palpitations, dizziness or fainting. She has had no major illnesses or hospitalizations. She has been on no medications routinely. The only medical issue for her has been frequent headaches. She came to today's visit with her mother, who is also quite happy with how she is doing and has no specific cardiac concerns. On physical examination today, her height was 168 cm, the 75th to 90th percentile, and her weight 71kg, around the 90th percentile. Her blood pressure was 120/76 in the right arm. Her pulse was 56 andher resting respiratory rate was 16. Her femoral pulses felt normal and her extremities were well perfused. Her abdomen was soft and nontender. Her liver was not enlarged. Her precordium was quiet. Herlungs were clear. Her lips and nail beds were pink. She had no clubbing or peripheral edema. She hada normal first heart sound and a physiologically-split second heart sound of normal intensity. I didnot detect a valve click. She had no significant murmurs. Her electrocardiogram was normal. A 2-dimensional Echo and Doppler study was performed. This demonstrated essentially normal intracardiac anatomy. She has a little more than mild pulmonary regurgitation, probably reflective of a minimally abnormal valve, but she has no pulmonary stenosis and her main and branch pulmonary arteries appea red normal in size. In summary, while Clover's pulmonary valve may be minimally abnormal, she does not have a significant murmur at this time and, since she is fully grown, I would not anticipate that there will be any change in her cardiac status going forward. I do not think there is any reason for me to see her routinely or for her to have any regular cardiac evaluation. We would be happy to forward her records at any point, if there are some questions regarding her cardiac status. She can remain completely unrestricted in activity and requires no medications related to her heart. She should not need SBE prophylaxis. I have not scheduled a return visit with us. If you have any questions about today's visit or any concern about her heart at any future time, do not hesitate to let us know. This information was reviewed with Clover and her mother. Sincerely, Electronically Signed by Alen Chen MD 11/18/2011 14:25 Alen Chen MD Division of Pediatric Cardiology [phone] - Alen Chen MD A - JLP Job ID: SM Doc ID: [id number] Ext Doc ID: [id number] cc: Luis Alfaro MD documented in this encounter Plan of Treatment Not on filedocumented as of this encounter Visit Diagnoses Not on filedocumented in this encounter Care Teams Lead Designer Relationship Specialty Start Date End Date Barb Corrales MD PCP - General 11/09/[address] [place] [address] [phone] documented as of this encounter
--- OUTSIDE RECORDS SUMMARY | 2022-05-03 10:43 | XMS_ITS | Encounter Summary ---
:1995 Author Organization [facility] Address [address] [place] [address] Care Team Providers Name Role Phone Unavailable Primary Care Provider Unavailable Encounter Details Date Type Department Care Team Description 07/03/2001 Hospital Encounter [facility] MD Todd [id number] [place] [address] [phone] (Wo rk) Social History Tobacco Use Types Packs/Day Years Used Date Never Assessed Sex Assigned at Date Recorded Not on file documented as of this encounter Discharge Disposition Disposition Code Departure Means Destination Auto Discharge documented in this encounter Plan of Treatment Not on filedocumented as of this encounter Procedures Procedure Name Priority Date/Time Associated Comments Diagnosis CONGENITAL 11/11/2011 11:15 Results for this ECHOCARDIOGRAM EDT procedure are in the results section. documented in this encounter Results CONGENITAL ECHOCARDIOGRAM (11/11/2011 11:15 EDT) Specimen Narrative CARDIOLOGY - 11/18/2011 11:22 EDT Patient Name: CLOVER PRIDE Chart Number: [id number] Site Location: Date of Appt: October, 11:15 AM Pediatric Echocardiogram Report Demographics and Visit Data: : 1995. ??Age: 16y/0m/18d. ??Sex : F. ??BSA (m 2): 1.83. ?? Height (cm): 168. ??Weight (kg): 71. ??B MT (kg/m 2): 25.16. ?? Patient location: [facility]. ??Height Lidia tile: 79.84. ??Weight Centile: 88.82. ?? Person requesting test: SIERRA ALDANA MD. ??Financial Assistance Advisor: Renetta Husain. 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 ??Referral diagnosis: valvar PS. ?? Procedure Description: CONGENITAL ECHOCA RDIOGRAM. ?? Summary: History of mild valvar pulmonary stenosi s. No significant gradient measured. The main pulmonary artery and branch pulmonary arteries are of normal size. There is mild pulmonary reg urgitation. Normal left ventricular function. No atrial communication. No other abnormalities seen. Essentially normal study. Compared with last study, no significant change. Complete 2-dimensional study performed, with pulse/continuous wave Doppler samplings, and color flow Doppler imagin g reviewed. . Findings: ?? Veins and Atria: ?? >> Atrial septal defect, ruled out >> Normal Left Atrium >> Normal Right Atrium >> Intact Atrial Septum ?? A-V Canal: ?? >> Normal Tricuspid Valve >> Normal Mitral Valve Trivial mitral regurgitation. ? Ventricles: ?? >> Global left ventricular dysfunction, ruled out Normal left ventricular function. ?? >> Right ventricular volume overload, ru led out >> Intact Ventricular Septum ?? Conotruncus: ?? >> Pulmonary stenosis, ruled out No gradient measured across the pulmonar y valve. Normal main pulmonary artery and branch pulmonary arteries. ?? >> Pulmonary regurgitation, mild At least two small jets of pulmonary reg urgitation. Total volume of the pulmonary regurgitation is probably smal l. ?? >> Normal Aortic Valve ?? Great Arteries: ?? >> Normal Pulmonary Artery >> Normal Aorta >> Normal Aortic Arch ?? Pericardium: ?? (No abnormalities seen) ?? Measures: ?? Systemic Arterial Function: ?? Name ?Value ?Units ?Z-Score ?Min ?Max ?? Systolic BP ? 1 20 ?mmHg ? 1.11 ? 83.46 ??130.1 ?? Diastolic BP ?7 6 ? mmHg ? 2.19 ? 36.33 ??73.83 ?? Pulse Pressure ?44 .00 ?mmHg ? Mean BP ? 90.7 ? mmHg ? 1.16 ? 57.91 ??99.17 ? M-Mode: ?? Name ?Value ?Units ?Z-Score ?Min ?Max ?? LV Diastolic Septal ? 0.84 ? cm ? -0.89 ?0.68 ?? 1.27 ?? Thickness M-Mode LV Diastolic ? 4.58 ? cm ? -1.26 ?4.32 ?? 5.78 ?? Dimension LV Diastolic Wall ? 0.78 ? cm ? -1.06 ?0.67 ?? 1.16 ?? Thickness M-Mode LV Systolic ?2.58 ? cm ? -1.92 ?2.56 ?? 3.97 ?? Dimension LV Fractional Shortening ?43.67 ?% ?2.23 ? 28.95 ??42.54 ?? M-Mode LV Mass / Height 2 ? 42.15 ?g/m 2 ? Relative Wall Thickness ? 0.35 ? LV Systolic Function: ?? Name ?Value ?Units ?Z-Score ?Min ?Max ?? Endocardial FS ?43 .67 ?% ?2.23 ? 28.95 ??42.54 ?? FS Vs Stress ?4 3.67 ?% ? Cardiac Geometry: ?? Name ?Value ?Units ?Z-Score ?Min ?Max ?? M-Mode LV Mass ?11 8.96 ?? gm ? -1.77 ?114.34 249.72 ?? M-Mode LV Mass Index ?65 ? g/m 2 ? LV Midwall Diastolic ?5.36 ? cm ? -1.64 ?5.24 ?? 6.68 ?? Dimension M-Mode LV Mass / Height ? 70.81 ?g/m ? M-Mode LV Mass / ?29. 31 ?g/m ? 19.4 ?? 38.6 ?? Height 2.7 ?? Aorta: ?? Name ?Value ?Units ?Z-Score ?Min ?Max ?? Ao Annulus Diameter ? 1.92 ? cm ? -0.99 ?1.72 ?? 2.52 ?? Ao Root Diameter ?2.3 9 ? cm ? -1.29 ?2.18 ?? 3.41 ?? AV Area (using Diameter) ?2.90 ? cm 2 ? Sinotubular Junction ?1.93 ? cm ? -1.7 ? 1.86 ?? 2.97 ?? Diameter Proximal Transverse Ao ?2.00 ? cm ? Arch Diameter ?? Analysis Aortic Valve Doppler: ?? Name ?Value ?Units ?? AV Area (using Diameter) ?2.90 ? cm 2 ? [place]'s Name: LAURYN BRAND,GRACE Bailey Date/time of reading: Nov 18 2011 - 11:20:49 AM Report created at 11:22:39 AM on Marquise November 18, 2011 Report Number: Note:Study interpreted at [facility] unless otherwise noted Procedure Note 11/18/2011 Patient Name: CLOVER PRIDE Chart Number: [id number] Site Location: Date of Appt: October, 11:15 AM Pediatric Echocardiogram Report Demographics and Visit Data: : 1995. Age: 16y/0m/18d. Sex: F. BSA (m 2): 1.83. Height (cm): 168. Weight (kg): 71. BMI ( kg/m 2): 25.16. Patient location: [facility]. Height Centi le: 79.84. Weight Centile: 88.82. Person requesting test: SIERRA ALDANA MD Financial Assistance Advisor: Renetta Husain. 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 Referral diagnosis: valvar PS. Procedure Description: CONGENITAL ECHOCA RDIOGRAM. Summary: History of mild valvar pulmonary stenosi s. No significant gradient measured. The main pulmonary artery and branch pulmonary arteries are of normal size. There is mild pulmonary reg urgitation. Normal left ventricular function. No atrial communication. No other abnormalities seen. Essentially normal study. Compared with last study, no significant change. Complete 2-dimensional study performed, with pulse/continuous wave Doppler samplings, and color flow Doppler imagin g reviewed. . Findings: Veins and Atria: >> Atrial septal defect, ruled out >> Normal Left Atrium >> Normal Right Atrium >> Intact Atrial Septum A-V Canal: >> Normal Tricuspid Valve >> Normal Mitral Valve Trivial mitral regurgitation. Ventricles: >> Global left ventricular dysfunction, ruled out Normal left ventricular function. >> Right ventricular volume overload, ru led out >> Intact Ventricular Septum Conotruncus: >> Pulmonary stenosis, ruled out No gradient measured across the pulmonar y valve. Normal main pulmonary artery and branch pulmonary arteries. >> Pulmonary regurgitation, mild At least two small jets of pulmonary reg urgitation. Total volume of the pulmonary regurgitation is probably smal l. >> Normal Aortic Valve Great Arteries: >> Normal Pulmonary Artery >> Normal Aorta >> Normal Aortic Arch Pericardium: (No abnormalities seen) Measures: Systemic Arterial Function: Name Value Units Z-Score Min Max Systolic BP 120 mmHg 1.11 83.46 130.1 Diastolic BP 76 mmHg 2.19 36.33 73.83 Pulse Pressure 44.00 mmHg Mean BP 90.7 mmHg 1.16 57.91 99.17 M-Mode: Name Value Units Z-Score Min Max LV Diastolic Septal 0.84 cm -0.89 0.68 1 .27 Thickness M-Mode LV Diastolic 4.58 cm -1.26 4.32 5 .78 Dimension LV Diastolic Wall 0.78 cm -1.06 0.67 1.1 6 Thickness M-Mode LV Systolic 2.58 cm -1.92 2.56 3. 97 Dimension LV Fractional Shortening 43.67 % 2.23 28 .95 42.54 M-Mode LV Mass / Height 2 42.15 g/m 2 Relative Wall Thickness 0.35 LV Systolic Function: Name Value Units Z-Score Min Max Endocardial FS 43.67 % 2.23 28.95 42.54 FS Vs Stress 43.67 % Cardiac Geometry: Name Value Units Z-Score Min Max M-Mode LV Mass 118.96 gm -1.77 114.34 24 9.72 M-Mode LV Mass Index 65 g/m 2 LV Midwall Diastolic 5.36 cm -1.64 5.24 6.68 Dimension M-Mode LV Mass / Height 70.81 g/m M-Mode LV Mass / 29.31 g/m 19.4 38.6 Height 2.7 Aorta: Name Value Units Z-Score Min Max Ao Annulus Diameter 1.92 cm -0.99 1.72 2 .52 Ao Root Diameter 2.39 cm -1.29 2.18 3.41 AV Area (using Diameter) 2.90 cm 2 Sinotubular Junction 1.93 cm -1.7 1.86 2 .97 Diameter Proximal Transverse Ao 2.00 cm Arch Diameter Analysis Aortic Valve Doppler: Name Value Units AV Area (using Diameter) 2.90 cm 2 [place]'s Name: LAURYN BRAND,GRACE Bailey Date/time of reading: Nov 18 2011 - 11:20:49 AM Report created at 11:22:39 AM on November 18, 2011 Report Number: Note:Study interpreted at [facility] unless otherwise noted Performing Organization Address City/State/ZIP Code Phon e Number [facility] documented in this encounter Visit Diagnoses Not on filedocumented in this encounter
--- OUTSIDE RECORDS SUMMARY | 2022-05-03 10:43 | XMS_ITS | Encounter Summary ---
:1995 Author Organization [facility] Address [address] [place] [address] Care Team Providers Name Role Phone Barb Corrales MD Primary Care Provider Encounter Details Date Type Department Care Team Description 04/16/2022 Lab Requisition [facility] Kelly Mcmahonuntiwona for other Pathology & Radha [facility] general examination Laboratory Medicine [address] [place], [place] 111 [facility] [address] [place] [address] Social History Tobacco Use Types Packs/Day Years Used Date Never Assessed Sex Assigned at Date Recorded Not on file documented as of this encounter Plan of Treatment Not on filedocumented as of this encounter Procedures Procedure Name Priority Date/Time Associated Diagnosis Comme nts PAP TEST Today 04/15/2022 14:30 EDT Encounter for other Results for this general examination procedur e are in the results section. documented in this encounter Results PAP TEST (04/15/2022 14:30 EDT) Specimens A. Cervix and/or [facility] Endocervix , ThinPrep CENTER Imaging System with LABORATORY Manual Evaluation SERVICES Specimen Adequacy Satisfactory for [facility] Evaluation - CENTER transformation zone LABORATORY component present SERVICES General Negative for [facility] Categorization intraepithelial CENTER lesion or malignancy LABORATORY SERVICES Descriptive Shift in jessy [facility] Diagnosis present suggestive of CENTER bacterial vaginosis. LABORATORY SERVICES Attestation . [facility] MEDICAL Electronically CENTER signed by JAY Gagnon CT(ASCP) on SERVICES 04/19/2022 at 16 33 Clinical History See below [facility] LABORAT[facility] SERVICES Performing Lab [facility] LAB [facility] LABORATORY SERVICES Scanned Images [facility] LABORATORY SERVICES Specimen Pap Test - Cervix and/or Endocervix Performing Organization Address City/State/ZIP Code Phon e Number [facility]OR[facility]ORY [address] [place] [address] SERVICES documented in this encounter Visit Diagnoses Diagnosis Encounter for other general examination documented in this encounter Care Teams Panel Sewer Relationship Specialty Start Date End Date Barb Corrales MD PCP - General 11/09/[address] [place] [phone] documented as of this encounter
--- OUTSIDE RECORDS SUMMARY | 2022-05-03 10:43 | XMS_ITS | Encounter Summary ---
:1995 Author Organization [facility] Address [address] [place] [address] Care Team Providers Name Role Phone Barb Corrales MD Primary Care Provider Encounter Details Date Type Department Care Team Description 04/16/2022 Lab Requisition [facility] Outr Resulting Lab, Pathology & Laboratory Provider [facility] [address] [place] [address] Social History Tobacco Use Types Packs/Day Years Used Date Never Assessed Sex Assigned at Date Recorded Not on file documented as of this encounter Plan of Treatment Not on filedocumented as of this encounter Procedures Procedure Name Priority Date/Time Associated Diagnosis Comme nts HOLD SST Today 04/15/2022 15:20 Results for this EDT procedure are i n the results section. RUBELLA IGG Today 04/15/2022 15:20 Results for this ANTIBODY EDT procedure are i n the results section. VARICELLA IGG Today 04/15/2022 15:20 Results fo r this ANTIBODY EDT procedure are i n the results section. documented in this encounter Results HOLD SST (04/15/2022 15:20 EDT) Pathologist Sig nature Hold Hold [facility] LABORATOR Y SERVICES Specimen Blood - Venous blood (substance) Performing Organization Address City/State/ZIP Code Phon e Number [facility] [address] [place] [address] SERVICES VARICELLA IGG ANTIBODY (04/15/2022 15:20 EDT) Varicella IgG Ab PositiveComment: See Note [facility] Presence of LABORATORY SERVICES detectable Varicella Zoster virus IgG antibodies. Specimen Blood - Venous blood (substance) Performing Organization Address City/[facility]/ZIP Code Phon e Number [facility] [address] [place] [address] SERVICES RUBELLA IGG ANTIBODY (04/15/2022 15:20 EDT) Rubella IgG Ab PositiveComment: See Note [facility] Positive for IgG LABORATORY SERVICES antibodies to Rubella virus. Specimen Blood - Venous blood (substance) Performing Organization Address City/[facility]/ZIP Code Phon e Number [facility] [address] [place] [address] SERVICES documented in this encounter Visit Diagnoses Not on filedocumented in this encounter Care Teams Automatic Machines Supervisor Relationship Specialty Start Date End Date Barb Corrales MD PCP - General 11/09/[address] [place] [phone] documented as of this encounter
== END 2022-05-03 10:38 | disposition home or self-care (01) ==
LOC: LBO 10:40
PROVIDERS: PCP Pediatrics; Visit Provider Obstetrics & Gynecology Gynecology
DX: O03.9 Complete or unspecified spontaneous abortion without complication (principal); Z01.818 Encounter for other preprocedural examination; Z01.812 Encounter for preprocedural laboratory examination
CPT/HCPCS: 36415; 85027; 86850; 86900; 86901

== ENCOUNTER 2022-05-05 08:52 | Day surgery (SDC) | payer BC, SELFPAY ==
[2022-05-05 09:16] VITALS: BP 123/81; PULSE 95; RESP 16; TEMP 36.3; O2SAT 99
[2022-05-05] MEDS: Lactated Ringers 1,000 ML 125 ML IV (09:31)
[2022-05-05] MEDS: DOXYCYCLINE 100 MG in Normal Saline 100 ML IVPB (09:32)
--- NOTE | 2022-05-05 10:08 | W.ANESPRE ---
General Info Date of Service Date Performed: 05/05/22 Height: 5 ft 5 in Weight: 89.358 kg Body Mass Index (BMI): 32.8 Surgical Procedure: Operation Date: 05/05/22 11:25 Proposed Procedure Side Surgeon p D&C Suction Completion Kimberly Ellis MD Meds Allergies and Home Medications Allergies Allergy/AdvReac Type Severity Reaction Status Date / Time No Known Allergies Allergy Verified 05/05/22 09:12 Home Medication Medication Instructions Recorded Unknown [No Known Home Meds] 05/03/22 Current Visit Medications: Current Medications Generic Name Dose Route Start Last Admin Trade Name Freq PRN Reason Stop Dose Admin Doxycycline Hyclate 100 mg/ 100 mls @ 100 mls/hr 05/05/22 06:00 05/05/22 09:32 Sodium Chloride IVPB 05/05/22 18:00 100 mls/hr PREOP DENEEN Administration Ringer's Solution 1,000 mls @ 125 mls/hr 05/05/22 06:00 05/05/22 09:31 IV 06/03/22 23:59 125 mls/hr INFUSION DENEEN Administration IV Miscellaneous Supplies 1 each 05/05/22 06:00 Iv Access IV 06/03/22 23:59 DIRECTED DENEEN Sodium Chloride 0 ml 05/05/22 06:00 Normal Saline Flush 10 Ml Syr IV 06/03/22 23:59 PRN PRN Sodium Chloride 0 ml 05/05/22 06:00 Normal Saline 10 Ml Vial IJ 06/03/22 23:59 DIRECTED PRN Sterile Water 0 ml 05/05/22 06:00 Water,Injection,Sterile 10 Ml Vial IJ 06/03/22 23:59 DIRECTED PRN PFSH Active Problems Active Problems: Problem Status Onset Code Miscarriage O03.9 Family history of congenital heart defect Z82.79 BMI 33.0-33.9,adult Z68.33 Twin gestation in first trimester O30.001 Z34.90 Medical History Medical History History of frequent headaches Miscarriage Pulmonary stenosis, valvar infancy Tobacco Smoking/Tobacco Use Status: Never Alcohol Alcohol Intake: current Alcohol intake frequency: a few times a month Substance Use Substance use: Rarely Substance use type: does not use Prental History History 2 Para 0 Hx # Term Pregnancies 0 Multiple births 0 Hx # Pregnancies 0 Ectopic pregnancies 0 AB induced 0 Hx Number of Living Children 0 AB spontaneous 1 Past Pregnancies Del. Date GA/Weeks # Preg Succ Route Wgt Sex Labor Lgth Anesthesia Location Prov Complic 08/04/21 No Delivery Date: 08/04/21 Last Updated by: Malina Ovalles LPN Miscarriage; presented to [facility] ED Vital Signs and Lab Results Vital Signs Most Recent Vital Signs in EMR: Most Recent Vital Signs Temp Pulse Resp BP Pulse Ox 36.3 C L 95 H 16 123/81 99 05/05/22 09:16 05/05/22 09:16 05/05/22 09:16 05/05/22 09:16 05/05/22 09:16 Lab Results Blood Type / Crossmatch: Patient ABO/Rh A Positive 05/03/22 Antibody Screen NEGATIVE 05/03/22 Complete Blood Count: White Blood Count 9.20 10^3/uL (4.4-10.8) 05/03/22 09:20 Red Blood Count 4.76 10^6/uL (3.93-5.22) 05/03/22 09:20 Hemoglobin 14.4 g/dL (11.2-15.7) 05/03/22 09:20 Hematocrit 41.1 % (36.0-46.0) 05/03/22 09:20 Platelet Count 218 10^3/uL (130-400) 05/03/22 09:20 Complete Metabolic Panel: No Data to Display Liver Function Panel: No Data to Display Coagulation Panel: No Data to Display Cardiac Panel: No Data to Display Arterial Blood Gas: No Data to Display Venous Blood Gas: No Data to Display Pancreas Panel: No Data to Display Thyroid Panel: Thyroid Stimulating Hormone (TSH) 0.86 uIU/mL (0.36-3.74) 04/15/22 15:20 Infectious Disease: HIV (1&2) Ag and Ab, 4th Generation Negative (Negative) 04/15/22 15:20 Hepatitis B Surface Antigen Negative (Negative) 04/15/22 15:20 Hepatitis C Antibody Negative (Negative) 04/15/22 15:20 Neisseria gonorrhoeae DNA Probe Negative (Negative) 04/15/22 14:30 Blood Cultures: No Data to Display Toxicology Panel: No Data to Display Panel: Beta HCG, Quantitative 1354 mIU/mL (1-3) H 05/05/22 09:28 Anesthesia Assessment and Plan Anesthesia History Personal History: No History of Anesthesia Complications Family History: No Family History of Anesthesia Complications Exercise Tolerance Exercise Tolerance: Metabolic Equivalents>4 Pertinent Negatives Pertinent Negatives: No Symptoms of GERD, No Major Cardiovascular Symptoms or Complaints, No Major Pulmonary Symptoms or Complaints and No History of CVA/TIA Cardiac & Pulmonary Exam Cardiac Exam: Normal S1/S2 Heart Sounds Pulmonary Exam: Clear Bilateral Breath Sounds Implantable Cardiac Device Does patient have a Pacemaker or an ICD?: No Airway Exam Known Difficult Airway: No Mallampati Class: 2 Mouth Opening: Normal (> 3cm) Thyromental Distance: Greater than 3 cm Neck Range of Motion: Full ROM Neck Circumference: Normal Teeth Condition: Normal Dentition ASA Classification ASA Score: ASA 2 Emergency Case?: No NPO Status NPO Status: NPO Clears >2 hours, Solids >8 hours Status Status: Other (Missed confirmed by Ultrasound [facility] 04/30/22) Anesthesia Plan Resuscitation Status: Full Code Anesthesia Technique: General Anesthesia Airway Planned: Natural Airway Monitors Used: Standard Monitors Preoperative Comments:: Contacts in, patient naps with them in, will leave in place.
[2022-05-05 10:29] LABS: HCG Quant, Pregnancy 1354 mIU/mL (1-3)
[2022-05-05 10:40] VITALS: BMI 32.8
[2022-05-05] MEDS: Bupivacaine 0.25% Pres-Free 30 ML VIAL (11:39)
--- NOTE | 2022-05-05 11:45 | POCSPONT_PTH ---
PATIENT: Clover Pride LOC: [facility] U#:[id number] AGE/SX: 26/F ROOM: RE05/05/[address]: Kimberly Ellis : 1995 BED: DIS: 05/05/2022 SPEC #: [id number] RECD: 05/05/22 13:00 STATUS: EMMA REIris #: [id number] SHEYLA: 05/05/22 11:[address]: Kimberly Ellis DEPT: Surgical Specimen RECD BY: Della Archer ENTERED: 05/05/22 13:02 SP TYPE: VELVET LAIRD DR: Luis Alfaro III Tissues: 1 - ,SPONTANEOUS CHROMOSOME ANALYSIS PROFILE Procedures: GROSS AND MICRO LEVEL 4 CHROMOSOME ANALYSIS 15-20 CELLS CHROMOSOME ANALYSIS TISSUE CULTURE Comments: [id number] (CYTOGENECTIS [id number])
--- NOTE | 2022-05-05 11:53 | W.PM.DSUDISC ---
Discharge Plan Disposition Patient Disposition: HOME Condition: Good Discharge Details Attending Provider: Kimberly Ellis Primary Care Provider: Luis Alfaro III Home Meds and New Rx's Prescriptions: No Action No Known Home Meds Discharge Instructions Additional Instructions: I will see you in the office this week. By that time we may have some of the pathology results, however the chromosomes results usually require a month before they are available. You can expect bleeding like a regular period. We will set up an appointment time she is to have a repeat hormone level prior to her office visit. Stand Alone Forms: DSU Post D&C Miscarriage Activity:: Activity as Tolerated Diet:: As Tolerated Discharge Orders Discharge Orders: Discharge Order (Routine); Ordered 05/05/22 Ordered By: Kimberly Ellis
[2022-05-05 11:54] VITALS: BP 93/60; PULSE 82; RESP 23; TEMP 36; O2SAT 98
[2022-05-05 12:25] VITALS: BP 100/68; PULSE 70; RESP 12; TEMP 36.5; O2SAT 100
--- NOTE | 2022-05-05 13:11 | W.PM.OP ---
Date of service: 05/05/22 Time of Service: 13:11 Operative Note Operative Note DATE OF PROCEDURE: 05/05/22 PRE-OP DIAGNOSIS: missed ab Di/[place] twins at 11w EGA PROCEDURE: cervical dilation and suction evacuation of uterine contents SURGEON: Kimberly Ellis Refer to Anesthesia Record ESTIMATED BLOOD LOSS: 5 PATHOLOGY: other (products of conception to lab for cytology and macro analysis) COMPLICATIONS: None Patient was transported to: same day Patient's condition: stable Indications: Patient is a 26-year-old female with Dx of embryonic demise at 11 weeks EGA of Di/[place] twin gestation. The embryonic demise was noted on u/s at the time of a [facility] visit at [facility]/22.? Findings: Non viable twin gestation noted on transabdominal ultrasound. The procedure was performed with the transabdominal transducer in place. Procedure Description: Patient was taken to the operating room where she was placed in the dorsal supine position and general anesthesia was administered without difficulty. IV Doxycycline was administered prior to arrival in the OR. She was then placed in the dorsal lithotomy position in yellowfin stirrups in a neurologically neutral position. She was then prepped, and draped in the usual sterile fashion. Surgical timeout was performed. [place] speculum was placed into the vagina and the anterior lip of the cervix was infiltrated with 2 cc of 0.25% Marcaine without epinephrine. A single-tooth tenaculum was then used to grasp and hold the anterior lip of the cervix. A paracervical block was performed with 4 cc of quarter percent Marcaine injected into the 4 and 8:00 paracervical spaces respectively. The cervix was then sequentially dilated to a maximum of 16 Navas and a 9 mm curved suction cannula was attached to suction and the level of suction tested. Transabdominal transducer was used to observe the uterus during the procedure The cannula was inserted into the uterine cavity attached to suction and sequentially all 4 quadrants of the uterine cavity were suction curetted. A polyp forceps was used to grasp an intact portion of placental tissue protruding from the cervical os. A banjo curette was used to perform a gentle curetting of all 4 quadrants of the uterine cavity. Minimal tissue was returned. A final insertion of the suction cannula and suction curetting of all 4 quadrants was performed with minimal tissue returned. At the completion of the procedure the endometrial cavity was empty of any products of conception. There was minimal bleeding. All instruments were removed from the vagina and tenaculum site was noted to be hemostatic. Patient was awakened and transported to recovery area in stable condition. All sponge lap needle counts correct x2
--- NOTE | 2022-05-05 14:09 | W.ANESPOSTOP ---
Postoperative Evaluation Date, Time and Location Date Performed: 05/05/22 Time Performed: 12:30 Patient Location: Day Surgery Unit Vital Signs Most Recent Imported Vital Signs: Most Recent Vital Signs Temp Pulse Resp BP Pulse Ox 36.5 C 70 12 100/68 100 05/05/22 12:25 05/05/22 12:25 05/05/22 12:25 05/05/22 12:25 05/05/22 12:25 Pain Score Most Recent Pain Score: Most Recent Pain Score Pain Level 0 05/05/22 12:25 Assessment Mental Status: Awake (Alert & Oriented to Patient Baseline) Airway and Respiratory Function: Patent airway with normal (patient baseline) respiratory exam Cardiovascular Function: Hemodynamically Stable Hydration Status: Adequately Hydrated Nausea & Vomiting: No Nausea or Vomiting Pain: Pt. Denies Any Pain Peripheral Nerve Block: Patient did not receive a nerve block
== END 2022-05-05 12:55 | disposition home or self-care (01) ==
PROVIDERS: PCP Pediatrics; Visit Provider Obstetrics & Gynecology Gynecology
PROC: (CPT 59841; principal; 2022-05-05 11:15)
DX: O02.1 Missed abortion (principal); Z3A.11 11 weeks gestation of pregnancy
CPT/HCPCS: 59820; 36415; 88305; 84702; 88233; 88262; J1100; J1885; J2405

== ENCOUNTER 2022-05-19 02:16 | Outpatient (CLI) | payer BC, SELFPAY ==
[2022-05-19 14:08] LABS: HCG Quant, Pregnancy 40 mIU/mL (1-3)
== END 2022-05-19 02:17 | disposition home or self-care (01) ==
LOC: LBO 02:16
PROVIDERS: PCP Pediatrics; Visit Provider Obstetrics & Gynecology Gynecology
DX: O03.9 Complete or unspecified spontaneous abortion without complication (principal); Z98.890 Other specified postprocedural states
CPT/HCPCS: 36415; 84702

== ENCOUNTER 2022-10-19 02:46 | Outpatient (CLI) | payer BC, SELFPAY ==
[2022-10-19 13:12] LABS: Abs Immature Grans 0.03 10^3/uL (0.0-0.06); Absolute Basophil Count 0.05 10^3/uL (0.0-0.2); Absolute Eosinophil Count 0.15 10^3/uL (0.0-0.7); Absolute Lymphocyte Count 1.37 10^3/uL (1.2-3.4); Absolute Monocyte Count 0.85 10^3/uL (0.1-0.8); Absolute Neutrophil Count 6.94 10^3/uL (1.2-6.7); Basophils % 0.5; Eosinophils % 1.6; HCT 33.8 % (36.0-46.0); HGB 11.1 g/dL (11.2-15.7); Immature Grans % 0.3; Lymphocytes % 14.6; MCH 24.7 pg (27.0-33.0); MCHC 32.8 % (32.0-36.0); MCV 75 fL (80-95); MPV 10.9 fL (8.0-11.0); Monocytes % 9.1; Neutrophils % 73.9; Platelet Count 209 10^3/uL (130-400); RDW 17.1 % (11.7-14.6); RDW-SD 46.2 fL; WBC 9.39 10^3/uL (4.4-10.8)
[2022-10-19 13:45] LABS: Glucose,1 Hr (Glucola) 100 mg/dL (80-140)
[2022-10-21 09:32] LABS: Hepatitis B Surface Ag Negative (Negative)
[2022-10-21 09:46] LABS: HIV-1/2 Ag & Ab Screen Negative (Negative)
[2022-10-21 09:49] LABS: Hepatitis C Ab w Rflx HCV PCR Negative (Negative)
[2022-10-21 13:05] LABS: Varicella IgG Antibody Positive (See Note)
[2022-10-21 13:08] LABS: Rubella IgG Ab (UVM) Positive (See Note)
[2022-10-21 14:26] LABS: Chlamydia Result Negative (Negative); GC Result Negative (Negative)
[2022-10-21 23:23] LABS: Syphilis IgG w/Reflex Nonreactive (Nonreactive)
== END 2022-10-19 02:47 | disposition home or self-care (01) ==
LOC: LBO 02:46
PROVIDERS: PCP Pediatrics; Visit Provider Advanced Practice Midwife
DX: Z34.91 Encounter for supervision of normal pregnancy, unspecified, first trimester (principal); Z3A.11 11 weeks gestation of pregnancy
CPT/HCPCS: 82950; 86787; 86803; 86850; 86900; 86901; 87340; 87389; 87491; 87591; 85025; 86762; 86780; 87480; 87510; 87660

== ENCOUNTER 2022-10-19 14:53 | Outpatient (REF) | payer BC, SELFPAY ==
[2022-10-20 11:18] LABS: *AMPHETAMINES SCREEN URINE Negative (Negative); *BARBITURATES SCREEN URINE Negative (Negative); *BENZODIAZEPINES SCREEN URINE Negative (Negative); Cannabinoids THC Negative (Negative); Cocaine Screen,Urine Negative (Negative); METHADONE URINE SCREEN Negative (Negative); OPIATES URINE SCREEN Negative (Negative); Tricyclic Antidepressants Negative (Negative)
[2022-11-01 08:04] LABS: Buprenorphine Negative ng/mL (Cutoff: 5.0)
== END 2022-10-19 14:54 | disposition home or self-care (01) ==
LOC: LBN 14:53
PROVIDERS: PCP Pediatrics; Visit Provider Advanced Practice Midwife
DX: Z34.91 Encounter for supervision of normal pregnancy, unspecified, first trimester (principal); Z3A.11 11 weeks gestation of pregnancy
CPT/HCPCS: 80307; 80348; 87086

== ENCOUNTER 2022-11-30 12:18 | Outpatient (REF) | payer BC, SELFPAY | END 2022-11-30 12:19 | disposition home or self-care (01) | LOC: LBN 12:18 | PROVIDERS: PCP Pediatrics; Visit Provider Advanced Practice Midwife | DX: O26.892 Other specified pregnancy related conditions, second trimester (principal); N89.8 Other specified noninflammatory disorders of vagina; R82.998 Other abnormal findings in urine; Z3A.17 17 weeks gestation of pregnancy | CPT/HCPCS: 87086; 87480; 87510; 87660 ==

== ENCOUNTER 2023-01-31 01:12 | Outpatient (CLI) | payer BC, SELFPAY ==
--- NOTE | 2023-01-31 15:06 | DI.US_ITS ---
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 Ejection fraction is 60%. Wall motion is n ormal Normal right ventricular size and systolic function Both atria are normal in size Normal mitral valve with moderate regurgitation Normal tricuspid valve with mild to moderate regurgitation. Estimated right ventricular systolic pre ssure is 40 mmHg Trileaflet aortic valve without stenosis or regurgitation Pulmonic valve is structurally normal, no evidence of pulmonic stenosis, physiologic regurgitation is noted Wall motion Left Ventricle The left ventricle is normal size. The left ventricular systolic function is normal. The left ventric ular ejection fraction is within the normal range. There is normal left ventricular wall thickness. T here is normal LV segmental wall motion. There is no ventricular septal defect visualized. LVEF is 60 %. Right Ventricle The right ventricle is normal size. The right ventricular systolic function is normal. The RVSP is 40 .4 mmHg. Atria The left atrium size is normal. The right atrium size is normal. The interatrial septum is intact wit h no evidence for an atrial septal defect. Aortic Valve The aortic valve is normal in structure. There is no aortic valvular stenosis. No aortic regurgitatio n is present. Mitral Valve The mitral valve is normal in structure. No evidence of mitral valve stenosis. Moderate mitral regur gitation. Tricuspid Valve The tricuspid valve is normal in structure. There is no tricuspid valve stenosis. Mild to moderate tricuspid regurgitation. Pulmonic Valve The pulmonary valve is normal in structure. There is no pulmonic valvular stenosis. Mild pulmonic reg urgitation. Great Vessels The aortic root is normal in size. The ascending aorta is normal in size. Aortic arch is normal in ca liber. The IVC collapses <50% with inspiration. Pericardium There is no pericardial effusion. 2D Dimensions IVSD d PLAX 0.94 cm F: 0.6-1.0 LV Vol A2C d MOD 114.8 mL LVPW d PLAX 0.96 cm F: 0.6 - 1.0 LV Vol A4C d MOD 98.2 mL LVID d PLAX 4.14 cm F: 3.8 - 5.2 LA vol/ BSA A2C s A-L 22.0 mL/m2 LVDs 2.80 cm F: 2.2 - 3.5 LA vol/ BSA A4C s A-L 27.5 mL/m2 Ao Root d 2.48 cm F: 2.7 - 3.3 LA Vol/ BSA Biplane s A-L 26.4 mL/m2 RA Area A4C 13.84 cm2 LA Area A4C s MOD 18.99 cm2 RA Vol/ BSA A4C s A-L 16.9 mL/m2 LA Area A2C s MOD 15.80 cm2 Ao Asc Diam d 2.52 cm F: 2.3 - 3.1 LV EF A4C MOD 60.6 % LV EF Teichholz 60.5 % LV EF A2C MOD 59.4 % LVEF (Dill's) 59.79 % F: 54 - 74 LV EF Biplane MOD 59.8 % LV Volume 81.88 mL F: 46 - 106 SV 64.99 mL LV Volume Index 41.35 mL/m2 F: 29 - 61 SV Index 32.92 mL/m2 LV Vol Biplane MOD 108.7 mL FS 31.90 % M-Mode TAPSE 2.36 cm (M/F) >1.7 LV Diastology MV E' medial 0.141 (>0.07 m/s) MV E Vmax 1.32 (0.4-1.3 m/s) LV E/e MED 9.35 (<14) MV E' lateral 0.159 (>0.1 m/s) LV E/e LAT 8.25 (<14) MV E/E' medial 9.37 MV E/E' lateral 8.29 Aortic Valve LVOT Area 3.73 cm2 AoV Area Vmax 3.39 cm2 LVOT Vmax 1.14 m/s AoV Area/ BSA (Vmax) 1.72 cm2/m2 LVOT Mean Ronen. 0.74 m/s TE Mean Ronen. 3.16 cm2 LVOT Peak Grad 5.2 mmHg TE Mean Ronen. Index 1.60 cm2/m2 LVOT Mean Grad 2.6 mmHg LVOT VTI 0.216 m LVOT Diam s 2.15 cm AoV Vmax 1.25 m/s Velocity Ratio 0.91 AoV Mean Ronen. 0.88 m/s AoV Peak Grad 6.2 mmHg LVOT SV 80.63 mL AoV Mean Grad 3.4 mmHg AoV VTI 0.229 m AoV Area VTI 3.52 cm2 AoV Area/ BSA (VTI) 1.78 cm/m2 Mitral Valve MV DT 174 (160-240 msec) MR Vmax 4.67 m/s MV PHT 50 msec MR VTI 1.331 m MV Area PHT 4.36 cm2 MR Peak Grad 87.2 mmHg MV VTI 0.265 m MR Mean Grad 58.8 mmHg MV VTI Annulus 0.267 m MR PISA Radius 0.42 cm MV Area VTI 3.07 (4.0-6.0 cm2) MR EROA 0.08 cm2 MR Aliasing Velocity 0.35 m/s MR PISA 1.11 cm2 Pulmonary Valve PV Vmax 1.22 (0.5-1.5 m/s) RVOT Peak Gr. 3.38 mmHg PV Peak Grad 6.0 mmHg RVOT Mean Gr. 1.75 mmHg PV Mean Grad 3.6 mmHg RVOT Diam s 2.09 cm (M/F) 2.1-3.5 PV VTI 0.228 m RVOT VTI 0.181 m PV SV 78.0 mL RVOT Vmax 0.92 m/s Tricuspid Valve TR Peak Grad 32.4 mmHg TR Vmax 2.85 m/s RA Pressure 8.00 mmHg RVSP (TR) 40.4 mmHg
== END 2023-01-31 01:32 ==
LOC: DI 01:13
PROVIDERS: PCP Pediatrics; Visit Provider Advanced Practice Midwife
DX: I37.0 Nonrheumatic pulmonary valve stenosis (principal); Z34.90 Encounter for supervision of normal pregnancy, unspecified, unspecified trimester
CPT/HCPCS: 93306

== ENCOUNTER 2023-02-10 02:54 | Outpatient (CLI) | payer BC, SELFPAY ==
[2023-02-10 11:31] LABS: HCT 30.6 % (36.0-46.0); HGB 9.9 g/dL (11.2-15.7); MCH 25.6 pg (27.0-33.0); MCHC 32.4 % (32.0-36.0); MCV 79 fL (80-95); MPV 10.9 fL (8.0-11.0); Platelet Count 201 10^3/uL (130-400); RBC 3.86 10^6/uL (3.93-5.22); RDW-SD 36.5 fL; WBC 12.23 10^3/uL (4.4-10.8)
[2023-02-10 12:34] LABS: Glucose,1 Hr (Glucola) 101 mg/dL (80-140)
== END 2023-02-10 02:55 | disposition home or self-care (01) ==
LOC: LBO 02:54
PROVIDERS: PCP Pediatrics; Visit Provider Advanced Practice Midwife
DX: Z34.92 Encounter for supervision of normal pregnancy, unspecified, second trimester (principal); Z3A.27 27 weeks gestation of pregnancy
CPT/HCPCS: 36415; 82950; 85027

== ENCOUNTER 2023-04-13 16:08 | Outpatient (REF) | payer BC, SELFPAY ==
[2023-04-13 17:38] LABS: *AMPHETAMINES SCREEN URINE Negative (Negative); *BARBITURATES SCREEN URINE Negative (Negative); *BENZODIAZEPINES SCREEN URINE Negative (Negative); Cannabinoids THC Negative (Negative); Cocaine Screen,Urine Negative (Negative); METHADONE URINE SCREEN Negative (Negative); OPIATES URINE SCREEN Negative (Negative)
[2023-04-13 17:47] LABS: Tricyclic Antidepressants Negative (Negative)
[2023-04-21 08:44] LABS: Buprenorphine Negative ng/mL (Cutoff: 5.0)
== END 2023-04-13 16:09 | disposition home or self-care (01) ==
LOC: LBN 16:08
PROVIDERS: PCP Pediatrics; Visit Provider Advanced Practice Midwife
DX: Z34.91 Encounter for supervision of normal pregnancy, unspecified, first trimester (principal)
CPT/HCPCS: 80307; 80348; 87081

== ENCOUNTER 2023-05-08 10:49 | Outpatient (CLI) | payer BC, SELFPAY ==
[2023-05-08 11:59] VITALS: BP 121/75; PULSE 87
[2023-05-08 12:47] VITALS: BP 121/75; PULSE 87; TEMP 36.5
--- NOTE | 2023-05-08 13:54 | W.OBNST ---
Date of service: 05/08/23 Time of Service: 13:54 NST Evaluation Reason for NST Reasons for Nonstress Test: FALSE LABOR Gestational Age Gestational Age in Weeks and Days: 40 Weeks and 0Days Test and Monitor Explained Test/Monitor Explained: Test Explained, Monitor Explained and Patient Verbalized Understanding Vital Signs Blood Pressure: 121/75 Pulse: 87 Temperature: 97.7 F Urine Results Urine Protein: Positive Urine Ketones: Positive Urine Glucose: Negative Urine Blood: Negative NST Information Date on Monitor: 05/08/23 Time on Monitor: 11:57 Date off Monitor: 05/08/23 Time off Monitor: 12:45 Total Time on Monitor: 48 NST Interventions: PO Hydration and Notify Provider Contraction Frequency: Q6 NST Evaluation Patient States Movement: Present FHR Baseline: 125 Variability: Moderate 6-25 bpm Accelerations: 15x15 Decelerations: None NST Results: Reactive Note Ultrasound Done: N/A. NST Note Note: moderate ketonuria and sp. gr >1.025 Cvx 1/50% posterior, vtx -3, intact membranes Offered pt Zofran for nausea, pt declines Offered pt IV rehydration, pt declines Offered pt snacks, pt declines Explained importance of hydration, nutrition and rest for coping with prodromal sx Pt to call if sx progress, bleeding, or ROM Next appt in 4 days Discharged to home, Rx for zofran 8 mg tabs q8 hrs prn sent to pharmacy NST Reviewed and Verified by: Sindy Castro
[2023-05-08 13:58] VITALS: BP 121/75; PULSE 87; TEMP 36.5
== END 2023-05-08 13:20 | disposition home or self-care (01) ==
LOC: BCD 10:51 → OBS 11:39
PROVIDERS: PCP Pediatrics; Visit Provider Advanced Practice Midwife
DX: O47.1 False labor at or after 37 completed weeks of gestation (principal); Z3A.40 40 weeks gestation of pregnancy
CPT/HCPCS: 59025

== ENCOUNTER 2023-05-09 02:01 | Observation (INO) | payer BC, SELFPAY ==
[2023-05-09] VITALS (8 sets, daily range): BP systolic 121–130; BP diastolic 74–79; PULSE 91–116; RESP 18; TEMP 36.4–36.7; O2SAT 97–98
--- NOTE | 2023-05-09 02:03 | HPE_ITS ---
Date of service: 05/09/23 Time of Service: 02:03 Assessment and Plan Assessment and plan (1) Prolonged labor with first : Status: Acute Assessment and plan: A: 27 yo @ 40+1 wks, maternal fatigue Prodromal sx ~17 hrs, poor tolerance of discomfort Feldman score 6, category 1 tracing Moderate ketonuria on arrival, urine sp.gr. 1.015 Cvx was 1/50% now 1-2/80%, intact membranes P: Outpt observation through the night Morphine sleep for therapeutic rest offered & accepted by pt Will reassess labor status as indicated Encourage oral intake as tolerated, Zofran prn OB-HPI Labor/Delivery History of Present Illness Reason for Visit: prodromal labor at term Chief Complaint: Uterine Contractions (contractions since yesterday morning, seen in [facility] 1100, cvx 1/50% posterior, was dehydrated & ketonuric per UA but declined IVF rehydration. She has been unable to rest except for a half hour nap, tolerating PO intake but queasy and not eating much.); Other (Pt returns to center reporting stronger more frequent contractions, no vomiting, no bleeding, no ROM, states she is very tired but can not rest.). TEOFILO Calculator Estimated Delivery Date Method Current WG Current Estimate 05/08/23 Ultrasound #2 40w 1d Other Estimates 05/08/23 LMP (Certain) 40w 1d 05/10/23 Ultrasound #1 39w 6d History of Present Expected Delivery Route/Plan - CNM FOB/partner - [place] (First baby together, 2 other children ages 6 & 8) [facility], hopes to avoid epidural GBS negative Specific Issues/Plan 1. Hx 11 wk twin gestation SAB. Plan serial scans in first trimester for reassurance prn. 2. BMI 33- early GTT = 100, low dose ASA recommended daily 3. Pt & her brother have hx of pulmonary stenosis at - offer Level 2 US 3a. [facility] [place] level 2 scan nml, echo sched'ed 01/07/23, [facility] recommended pt have echo, done in January 3b. Echo result nml except for mild-mod regurg, Traffic Sign Erection Supervisor reviewed, no further recommendation 4. Genetic testing options- declines testing at this time. 5. MCV low @ 75 on initial OB, will recheck @ 28 wks, consider hgb electropho resis if low (per [facility] [place]) 6. Anemia - Hgb 9.9/ HCT 30.6-Taking gummy vitamins - iron tablet daily recommended Informed Consent Informed Consent: Other (therapeutic rest via morphine sleep) Review of Systems Narrative: ROS completed and noncontributory other then HPI [facility] All Active Problems (Updated 05/09/23 @ 02:13 by Sindy Castro) Prolonged labor with first (Acute) Anemia affecting (Acute) (Acute) BMI 33.0-33.9,adult (Acute) Medical History (Updated 05/09/23 @ 02:13 by Sindy Castro) Family history of congenital heart defect History of frequent headaches Miscarriage Miscarriage 08/2021. SAB 1st trimester. No D&C. 05/2022. SAB twin gestation. D&C 05/05/22. Nl male karyotype. Positive test The patient return in 2 weeks for a ultrasound for dating and viability. Pulmonary stenosis, valvar infancy Vaginal discharge Surgical History (Updated 10/13/22 @ 17:28 by Kelly Mcmahon CNM) Hx of dilation and curettage 05/05/22. [place]/Di twin embryonic demise 11w EGA. D&C at [facility]. Nl male karyotype. 05/29/23. D&C at [facility] for retained POC. Necrotic chorionic villi and decidua. Family History (Updated 10/19/22 @ 17:00 by Kelly Mcmahon CNM) Brother Heart defect, congenital resolved after Maternal Grandmother Diabetes Paternal Grandmother Diabetes Social History (Updated 08/05/21 @ 08:58 by Louise Jeffery RN) Smoking/Tobacco Use Status: Never Smoking risk assessment performed?: Yes Alcohol Intake: current Alcohol Intake frequency: a few times a month Drug use: Rarely Substance use type: does not use Do you feel safe at home: Yes Do you feel safe in your relationship?: Yes Female Reproductive History Menstrual Age of Menarche: 13 Duration of menses: 3-5 days History History 2 3 Para 0 Hx # Term Pregnancies 0 Multiple births 0 Hx # Pregnancies 0 Ectopic pregnancies 0 AB induced 0 Hx Number of Living Children 0 AB spontaneous 2 Past Pregnancies Del. Date GA/Weeks # Preg Succ Route Wgt Sex Labor Lgth Anesth esia Location [facility] 08/04/21 No 04/30/22 11 Yes No Kimberly Jeffries or Delivery Date: 08/04/21 Last Updated by: Malina Ovalles LPN Miscarriage; presented to [facility] ED Delivery Date: 04/30/22 Last Updated by: Kimberly Ellis MD missed AB of mono chorionic diamniotic twin gestation. Embryonic demised at 11w EGA: D&C 05/05/22 at [facility]. Retained POC: repeat D&C 05/29/22 Meds Allergies and Home Medications Allergies Allergy/AdvReac Type Severity Reaction Status Date / Time No Known Allergies Allergy Verified 05/05/23 10:24 Home Medications Medication Instructions Recorded Confirmed Type prenat.vits,farhad,amh-cvap-hvzsf 1 tab PO DAILY 09/06/22 05/05/23 History aspirin 81 mg tablet,delayed 81 mg PO DAILY 11/03/22 05/05/23 History release (Adult Low Dose Aspirin) ferrous sulfate 325 mg (65 mg 325 mg PO DAILY 03/08/23 05/05/23 History iron) tablet ondansetron HCl 8 mg tablet 8 mg PO Q8H PRN nausea and 05/08/23 Rx vomiting #10 tabs Exam Physical Exam Vital Signs Reviewed: Yes Constitutional Constitutional: mild distress, average body habitus and cooperative Detailed Labor and Delivery Exam Dilation: 1.5 Effacement (%): 80 station: -3 Cervix position: mid Consistency: medium FELDMAN Score(Cervical Ripeness Score): 6 Amniotic Membrane Status: Intact Contraction Frequency(min): q3-4 Contraction Duration(sec): 60 Contraction Intensity: Mild Fetus A Heart Rate Baseline: 120 Monitor Accelerations: 15 X 15 Monitor Decelerations: None Variability: Moderate (6-25 BPM) Categories: Category I Est. Weight: 7 lb 7.931 oz Est. Weight: 3400 gms HEENT Exam HEENT Exam: Normal Neck Exam Neck Exam: Normal Chest/Brest/Axilla Exam Chest Exam: Normal Breast Exam Breast Exam: Not Done Respiratory Exam Respiratory Exam: Normal Cardiovascular Exam Cardiovascular Exam: Normal Abdominal Exam Abdominal Exam: Normal (Gravid, nontender) Rectal Exam Rectal Exam: Normal Exam Exam: Normal Extremities Exam Extremities Exam: Normal Back/Spine/Pelvis Exam Back Exam: Normal Pelvis Adequate: Yes Skin Exam Skin Exam: Normal Neurological Exam Neurological Exam: Normal Psychiatric Exam Psychiatric Exam: Normal Results Results Group Beta Strep: Negative Blood Type: A+ Rubella Status: Immune Varicella Immunity: Immune Risk Assessment Risk for Shoulder Dystocia Historical/Initial OB: POSITIVE FOR: Pre- BMI>30; NEGATIVE FOR: Pelvic Abnormality, Previous Shoulder Dystocia or Previous Macrosomia 36 Weeks: NEGATIVE FOR: Current Gestational DM, EFW>4500gms or Maternal Weight Gain>40lbs 40 Weeks: NEGATIVE FOR: EFW> 4500 gms, Maternal Weight Gain >40lb or Post Dates Delivery Plan @ 36wks: Risk for Pre-Eclampsia Date Initiated/Initials: start @ 12 wks. KM Yes, if one or more: NEGATIVE FOR: Hx Pre-E/Gest HTN, Chronic HTN, Multiple Gestation, Pre-gestational DM, Renal Disease, Systemic Lupus or APA Syndrome Yes, if 2 or more: POSITIVE FOR: Nulliparity and BMI>30; NEGATIVE FOR: Age>= 35 yrs, >10yr btwn pregnancies, ethinicty, Mother/Sister w/ Pre-E or Previous IUGR Risk for Post- Hemorrhage Initial: POSITIVE FOR: Multiple Gestation; NEGATIVE FOR: Previous PPH, Known Clotting Deficiency, Grand Multiparity or Anticoagulation 36 Weeks: NEGATIVE FOR: Anemia, hgb<10, Low platelets(thrombocytopenia), Gestational HTN or Pre-E, Polyhydraminios or EFW>4500gms 40 Weeks: NEGATIVE FOR: Anemia, hgb<10, Low platelets (thrombocytopenia), Gestation HTN or Pre-E, Polyhydraminios or EFW>4500gms At Risk?: No Counseled re: Active Management: Yes Risks Reviewed Risks Reviewed Upon Admission: Yes
[2023-05-09] MEDS: MORPHine 10 MG/ML VIAL 15 MG IM (02:14)
--- NOTE | 2023-05-09 02:44 | W.OBNST ---
Date of service: 05/09/23 Time of Service: 02:45 NST Evaluation Reason for NST Reasons for Nonstress Test: FALSE LABOR Gestational Age Gestational Age in Weeks and Days: 40 Weeks and 1Days Test and Monitor Explained Test/Monitor Explained: Test Explained, Monitor Explained and Patient Verbalized Understanding Vital Signs Blood Pressure: 123/74 Pulse: 95 Temperature: 97.6 F Urine Results Urine Protein: Negative Urine Ketones: Positive Urine Glucose: Negative Urine Blood: Negative NST Information Date on Monitor: 05/09/23 Time on Monitor: 01:06 Date off Monitor: 05/09/23 Time off Monitor: 01:44 Total Time on Monitor: 38 NST Interventions: None NST Evaluation Patient States Movement: Present FHR Baseline: 120 Variability: Moderate 6-25 bpm Accelerations: 15x15 Decelerations: None NST Results: Reactive Note Ultrasound Done: N/A. NST Note Note: Cvx 1-2/80% mid pelvis, intact membranes, vtx -3 ROP Moderate ketonuria POC: Overnight obs and morphine sleep NST Reviewed and Verified by: Sindy Castro
--- NOTE | 2023-05-09 06:26 | NUR.NOTE ---
Pt has been sleeping since IM Morphine. She has changed positions from right side to left side, and her resp rate is regular.
--- NOTE | 2023-05-09 10:03 | DSE_ITS ---
Date of service: 05/09/23 Time of Service: 10:03 DS: Diagnosis Discharge Diagnosis (1) Prolonged labor with first : Status: Acute Asessment and Plan: Clover awoke after sleeping with IM morphine. Her contractions are now mild. She ate breakfast and has been drinking water well. Cervix rechecked and no change noted. Reviewed signs of labor and Clover was instructed to continue resting at home and call if contractions become strong and regular. Follow up with schedule appointmnet at [facility]. Discharge Plan Disposition Patient Disposition: Home Condition: Good Discharge Details Reason For Visit: prodromal labor at term Admit Date/Time: 05/09/23 02:01 Admit Provider: Sindy Castro Attending Provider: Sindy Castro Primary Care Provider: Luis Alfaro III Home Meds and New Rx's Prescriptions: No Action prenat.vits,farhad,[id number]-pszlw Tablet 1 tab PO DAILY aspirin [Adult Low Dose Aspirin] 81 mg tablet,delayed release (DR/EC) 81 mg PO DAILY ferrous sulfate 325 mg (65 mg iron) tablet 325 mg PO DAILY ondansetron HCl 8 mg tablet 8 mg PO Q8H PRN (Reason: nausea and vomiting) Qty: 10 0RF Discharge Instructions Activity:: Activity as Tolerated Equipment/Supplies:: No Equipment Needed Diet:: As Tolerated Discharge Orders Discharge Orders: Discharge Order (Routine); Ordered 05/09/23 Ordered By: Kelly Mcmahon DS: Summary Time Spent with Patient providing and/or coordinating discharge services: Less than 30 minutes Status at Discharge Functional status at discharge: independent ambulation Overall status at discharge: patient is back to baseline Mental Status: mental status grossly normal Speech and Movement: speech and movement normal Mood: congruent mood Affect: normal affect Exam Resp Auscultation: clear to auscultation bilaterally Cardio Rate: regular rate Rhythm: regular rhythm External Female Exam: normal external appearance Skin General skin exam: no rashes or lesions noted Psych Appearance: grossly normal Mental Status: mental status grossly normal Speech and Movement: speech and movement normal Mood: congruent mood Affect: normal affect Other: tired but coping well. DS: Data Vitals/I&O Vitals and I&O: Vital Signs Temperature 98.1 F 05/09/23 07:28 Temperature 97.6 F 05/09/23 02:46 Temperature Source Oral 05/09/23 07:28 Pulse 116 H 05/09/23 07:29 Pulse 95 05/09/23 02:46 Pulse Rhythm Regular 05/09/23 07:36 Respiratory Rate 18 05/09/23 07:28 Blood Pressure 122/74 05/09/23 07:28 Blood Pressure 123/74 05/09/23 02:46 Pulse Oximetry 98 05/09/23 07:29 Oxygen Delivery Method Room Air 05/09/23 02:24 Oxygen Flow Rate 0 05/09/23 02:24 Intake & Output 05/08/23 05/08/23 05/09/23 11:59 23:59 11:59 Output Total 200 / 200 Balance -200 / -200 Weight 209 lb Output: Urine 200 / 200 Other: Urine Color Yellow PFSH All Active Problems (Updated 05/09/23 @ 02:13 by Sindy Castro) Prolonged labor with first (Acute) Anemia affecting (Acute) (Acute) BMI 33.0-33.9,adult (Acute) Medical History (Updated 05/09/23 @ 02:13 by Sindy Castro) Family history of congenital heart defect History of frequent headaches Miscarriage Miscarriage 08/2021. SAB 1st trimester. No D&C. 05/2022. SAB twin gestation. D&C 05/05/22. Nl male karyotype. Positive test The patient return in 2 weeks for a ultrasound for dating and viability. Pulmonary stenosis, valvar infancy Vaginal discharge Surgical History (Updated 10/13/22 @ 17:28 by Kelly Mcmahon CNM) Hx of dilation and curettage 05/05/22. [place]/Di twin embryonic demise 11w EGA. D&C at [facility]. Nl male karyotype. 05/29/23. D&C at [facility] for retained POC. Necrotic chorionic villi and decidua. Family History (Updated 10/19/22 @ 17:00 by Kelly Mcmahon CNM) Brother Heart defect, congenital resolved after Maternal Grandmother Diabetes Paternal Grandmother Diabetes Social History (Updated 08/05/21 @ 08:58 by Louise Jeffery RN) Smoking/Tobacco Use Status: Never Smoking risk assessment performed?: Yes Alcohol Intake: current Alcohol Intake frequency: a few times a month Drug use: Rarely Substance use type: does not use Do you feel safe at home: Yes Do you feel safe in your relationship?: Yes Female Reproductive History Menstrual Age of Menarche: 13 Duration of menses: 3-5 days History History 3 Para 0 Hx # Term Pregnancies 0 Multiple births 0 Hx # Pregnancies 0 Ectopic pregnancies 0 AB induced 0 Hx Number of Living Children 0 AB spontaneous 2 Past Pregnancies Del. Date GA/Weeks # Preg Succ Route Wgt Sex Labor Lgth Anesth esia Location Prov Complic 08/04/21 No 04/30/22 11 Yes No Kimberly Jeffries or Delivery Date: 08/04/21 Last Updated by: Malina Ovalles LPN Miscarriage; presented to [facility] ED Delivery Date: 04/30/22 Last Updated by: Kimberly Ellis MD missed AB of mono chorionic diamniotic twin gestation. Embryonic demised at 11w EGA: D&C 05/05/22 at [facility]. Retained POC: repeat D&C 05/29/22 Time Spent with Patient Time Spent with Patient: <45 minutes Time was spent: preparing to see the patient(eg.review tests), obtaining and/or reviewing separately otained hiistory and counseling the patient
--- NOTE | 2023-05-09 10:42 | W.OBNST ---
Date of service: 05/09/23 Time of Service: 10:42 NST Evaluation Reason for NST Reasons for Nonstress Test: OTHER, SEE COMMENT Reason for NST Other: rule out labor Gestational Age Gestational Age in Weeks and Days: 40 Weeks and 1Days Test and Monitor Explained Test/Monitor Explained: Test Explained, Monitor Explained and Patient Verbalized Understanding Vital Signs Blood Pressure: 121/79 Pulse: 91 Temperature: 97.9 F Urine Results Urine Protein: Negative Urine Ketones: Positive Urine Glucose: Negative Urine Blood: Negative NST Information Date on Monitor: 05/09/23 Time on Monitor: 09:35 Date off Monitor: 05/09/23 Time off Monitor: 10:26 Total Time on Monitor: 51 NST Interventions: PO Hydration Contraction Frequency: 4 contractions NST Evaluation Patient States Movement: Present FHR Baseline: 110 Variability: Moderate 6-25 bpm Accelerations: 15x15 Decelerations: None NST Results: Reactive Note Ultrasound Done: N/A. NST Note Note: Clover was admitted to observation for prodromal labor. She slept well with Morphine 15 mg IM. Reactive NST. Home with instructions to return with signs of active labor. NST Reviewed and Verified by: Kelly Mcmahon
== END 2023-05-09 10:35 | disposition home or self-care (01) ==
PROVIDERS: Admitting Provider Advanced Practice Midwife; PCP Pediatrics; Visit Provider Advanced Practice Midwife
DX: O26.893 Other specified pregnancy related conditions, third trimester (principal); O99.013 Anemia complicating pregnancy, third trimester; D64.9 Anemia, unspecified; Z3A.40 40 weeks gestation of pregnancy; R82.4 Acetonuria; E86.0 Dehydration
CPT/HCPCS: 59025; G0378; J2270

== ENCOUNTER 2023-05-10 05:31 | Inpatient (IN) | payer BC, SELFPAY ==
[2023-05-10] VITALS (250 sets, daily range): BP systolic 113–144; BP diastolic 64–95; PULSE 68–120; RESP 16–20; TEMP 36.4–38; O2SAT 95–100; BMI 34.7
[2023-05-10] MEDS: Lactated Ringers 500 ML IV (04:03)
--- NOTE | 2023-05-10 05:33 | W.OBNST ---
Date of service: 05/10/23 Time of Service: 05:33 NST Evaluation Reason for NST Reasons for Nonstress Test: FALSE LABOR Gestational Age Gestational Age in Weeks and Days: 40 Weeks and 2Days Test and Monitor Explained Test/Monitor Explained: Test Explained, Monitor Explained and Patient Verbalized Understanding Vital Signs Blood Pressure: 143/72 Pulse: 82 Temperature: 97.7 F Urine Results Urine Protein: Negative Urine Ketones: Positive Urine Glucose: Negative Urine Blood: Negative NST Information Date on Monitor: 05/10/23 Time on Monitor: 03:00 Date off Monitor: 05/10/23 Time off Monitor: 03:24 Total Time on Monitor: 24 NST Interventions: None NST Evaluation Patient States Movement: Present FHR Baseline: 115 Variability: Moderate 6-25 bpm Accelerations: 15x15 Decelerations: None NST Results: Reactive Note Ultrasound Done: N/A. NST Note Note: Clover has been experiencing contractions for 36 hours. She received therapeutic rest last night and returned home to await active labor. Reactive NST. Admitted in early labor and options reviewed for induction of labor or therapeutic rest. NST Reviewed and Verified by: Kelly Mcmahon
--- NOTE | 2023-05-10 05:35 | W.PM.OBHPL1 ---
Date of service: 05/10/23 Time of Service: 05:35 Assessment and Plan Assessment and plan (1) Prolonged latent phase of labor: Status: Acute Assessment and plan: Admitted in early labor and options reviewed for induction of labor with misoprostol, pitocin and/or AROM or therapeutic rest. IV fluid started with Lactated ringers 500 cc bolus then 250 cc/hr. Clover opts for AROM at this time and will consider pitocin augmentation if spontaneous labor does not occur. Comfort measures and anticipate . OB-HPI Labor/Delivery History of Present Illness Reason for Visit: prolonged latent phase of labor Chief Complaint: Uterine Contractions; Other (fatigue). TEOFILO Calculator Estimated Delivery Date Method Current WG Current Estimate 05/08/23 Ultrasound #2 40w 2d Other Estimates 05/08/23 LMP (Certain) 40w 2d 05/10/23 Ultrasound #1 40w 0d Comments: Clover has been experiencing contractions for 36 hours. She received therapeutic rest last night and returned home to await active labor. Upon arrival urine dip shows large ketones and Clover complains of fatigue. History of Present Expected Delivery Route/Plan - CNM FOB/partner - [place] (First baby together, 2 other children ages 6 & 8) [facility], hopes to avoid epidural GBS negative Specific Issues/Plan 1. Hx 11 wk twin gestation SAB. Plan serial scans in first trimester for reassurance prn. 2. BMI 33- early GTT = 100, low dose ASA recommended daily 3. Pt & her brother have hx of pulmonary stenosis at - offer Level 2 US 3a. [facility] level 2 scan nml, echo sched'ed 01/07/23, M recommended pt have echo, done in January 3b. Echo result nml except for mild-mod regurg, M48 M60 Armor Crewman reviewed, no further recommendation 4. Genetic testing options- declines testing at this time. 5. MCV low @ 75 on initial OB, will recheck @ 28 wks, consider hgb electrophoresis if low (per [facility]) 6. Anemia - Hgb 9.9/ HCT 30.6-Taking gummy vitamins - iron tablet daily recommended PFSH All Active Problems (Updated 05/10/23 @ 05:37 by Kelly Mcmahon CNM) Prolonged latent phase of labor (Acute) Anemia affecting (Acute) (Acute) BMI 33.0-33.9,adult (Acute) Medical History (Updated 05/10/23 @ 05:37 by Kelly Mcmahon CNM) Family history of congenital heart defect History of frequent headaches Miscarriage Miscarriage 08/2021. SAB 1st trimester. No D&C. 05/2022. SAB twin gestation. D&C 05/05/22. Nl male karyotype. Positive test The patient return in 2 weeks for a ultrasound for dating and viability. Pulmonary stenosis, valvar infancy Vaginal discharge Surgical History (Updated 10/13/22 @ 17:28 by Kelly Mcmahon CNM) Hx of dilation and curettage 05/05/22. [place]/Di twin embryonic demise 11w EGA. D&C at [facility]. Nl male karyotype. 05/29/23. D&C at [facility] for retained POC. Necrotic chorionic villi and decidua. Family History (Updated 10/19/22 @ 17:00 by Kelly Mcmahon CNM) Brother Heart defect, congenital resolved after Maternal Grandmother Diabetes Paternal Grandmother Diabetes Social History (Updated 08/05/21 @ 08:58 by Louise Jeffery RN) Smoking/Tobacco Use Status: Never Smoking risk assessment performed?: Yes Alcohol Intake: current Alcohol Intake frequency: a few times a month Drug use: Rarely Substance use type: does not use Do you feel safe at home: Yes Do you feel safe in your relationship?: Yes Female Reproductive History Menstrual Age of Menarche: 13 Duration of menses: 3-5 days History History 3 Para 0 Hx # Term Pregnancies 0 Multiple births 0 Hx # Pregnancies 0 Ectopic pregnancies 0 AB induced 0 Hx Number of Living Children 0 AB spontaneous 2 Past Pregnancies Del. Date GA/Weeks # Preg Succ Route Wgt Sex Labor Lgth Anesthesia Location Prov Complic 08/04/21 No 04/30/22 11 Yes No Kimberly Ellis Delivery Date: 08/04/21 Last Updated by: Malina Ovalles LPN Miscarriage; presented to [facility] ED Delivery Date: 04/30/22 Last Updated by: Kimberly Ellis MD missed AB of mono chorionic diamniotic twin gestation. Embryonic demised at 11w EGA: D&C 05/05/22 at [facility]. Retained POC: repeat D&C 05/29/22 Meds Allergies and Home Medications Allergies Allergy/AdvReac Type Severity Reaction Status Date / Time No Known Allergies Allergy Verified 05/05/23 10:24 Home Medications Medication Instructions Recorded Confirmed Type prenat.vits,afrhad,zfl-zkgp-oxcjn 1 tab PO DAILY 09/06/22 05/05/23 History aspirin 81 mg tablet,delayed 81 mg PO DAILY 11/03/22 05/05/23 History release (Adult Low Dose Aspirin) ferrous sulfate 325 mg (65 mg 325 mg PO DAILY 03/08/23 05/05/23 History iron) tablet ondansetron HCl 8 mg tablet 8 mg PO Q8H PRN nausea and 05/08/23 Rx vomiting #10 tabs Exam Detailed Labor and Delivery Exam Dilation: 1 Effacement (%): 80 station: -2 Cervix position: posterior Consistency: soft Mcclure Score: Cervical Points Exam 0 1 2 3 Dilation Closed 1-2cm 3-4 cm 5-6cm Effacement 0-30% 40-50% 60-70% 80% Consistency Firm Medium Soft Station -3 -2 -1,0 +1,+2 Position Posterior Mid Anterior Amniotic Membrane Status: Intact Monitor Mode: External Contraction Frequency(min): every 4-6 Contraction Duration(sec): 50 Contraction Intensity: Moderate Fetus A Heart Rate Baseline: 140 Monitor Accelerations: 15 X 15 Monitor Decelerations: None Variability: Moderate (6-25 BPM) Presentation: Vertex Categories: Category I Respiratory Exam Respiratory Exam: Normal Cardiovascular Exam Cardiovascular Exam: Normal Abdominal Exam Abdominal Exam: Normal Exam Exam: Normal Extremities Exam Extremities Exam: Normal Skin Exam Skin Exam: Normal Psychiatric Exam Psychiatric Exam: Normal Risk Assessment Risk for Shoulder Dystocia Historical/Initial OB: POSITIVE FOR: Pre- BMI>30; NEGATIVE FOR: Pelvic Abnormality, Previous Shoulder Dystocia or Previous Macrosomia 36 Weeks: NEGATIVE FOR: Current Gestational DM, EFW>4500gms or Maternal Weight Gain>40lbs 40 Weeks: NEGATIVE FOR: EFW> 4500 gms, Maternal Weight Gain >40lb or Post Dates Delivery Plan @ 36wks: Risk for Pre-Eclampsia Daily Dose ASA Indicated: Yes Date Initiated/Initials: start @ 12 wks. KM Yes, if one or more: NEGATIVE FOR: Hx Pre-E/Gest HTN, Chronic HTN, Multiple Gestation, Pre-gestational DM, Renal Disease, Systemic Lupus or APA Syndrome Yes, if 2 or more: POSITIVE FOR: Nulliparity and BMI>30; NEGATIVE FOR: Age>= 35 yrs, >10yr btwn pregnancies, ethinicty, Mother/Sister w/ Pre-E or Previous IUGR Risk for Post- Hemorrhage Initial: NEGATIVE FOR: Multiple Gestation, Previous PPH, Known Clotting Deficiency, Grand Multiparity or Anticoagulation 36 Weeks: NEGATIVE FOR: Anemia, hgb<10, Low platelets(thrombocytopenia), Gestational HTN or Pre-E, Polyhydraminios or EFW>4500gms 40 Weeks: NEGATIVE FOR: Anemia, hgb<10, Low platelets (thrombocytopenia), Gestation HTN or Pre-E, Polyhydraminios or EFW>4500gms Counseled re: Active Management: Yes Risks Reviewed Risks Reviewed Upon Admission: Yes
[2023-05-10 05:57] LABS: HCT 38.4 % (36.0-46.0); HGB 13.3 g/dL (11.2-15.7); MCH 28.8 pg (27.0-33.0); MCHC 34.6 % (32.0-36.0); MCV 83 fL (80-95); MPV 11.7 fL (8.0-11.0); Platelet Count 199 10^3/uL (130-400); RBC 4.62 10^6/uL (3.93-5.22); RDW 16.4 % (11.7-14.6); RDW-SD 49.7 fL; WBC 18.21 10^3/uL (4.4-10.8)
[2023-05-10 05:59] LABS: Source Nasal/Nares
[2023-05-10 06:31] LABS: COVID-19 PCR Negative (Negative)
[2023-05-10] MEDS: Lactated Ringers 1,000 ML 125 ML IV (08:30)
--- NOTE | 2023-05-10 08:53 | ANES.PREOP_ITS ---
General Info Date of Service Date Performed: 05/10/23 Height: 5 ft 5 in Weight: 94.801 kg Body Mass Index (BMI): 34.7 Meds Allergies and Home Medications Allergies Allergy/AdvReac Type Severity Reaction Status Date / Time No Known Allergies Allergy Verified 05/05/23 10:24 Home Medication Medication Instructions Recorded prenat.vits,farhad,muc-afhj-whdop 1 tab PO DAILY 09/06/22 aspirin 81 mg tablet,delayed 81 mg PO DAILY 11/03/22 release (Adult Low Dose Aspirin) ferrous sulfate 325 mg (65 mg 325 mg PO DAILY 03/08/23 iron) tablet ondansetron HCl 8 mg tablet 8 mg PO Q8H PRN nausea and 05/08/23 vomiting #10 tabs Current Visit Medications: Current Medications Generic Name Dose Route Start Last Admin Trade Name Freq PRN Reason Stop Dose Admin Ephedrine Sulfate 5 mg 05/10/23 08:41 Ephedrine 50 Mg/Ml Vial IVP DIRECTED PRN Sodium Chloride 500 mls @ 0 mls/hr 05/10/23 05:31 Saline 500ml Bag IV PRN PRN As Directed Ringer's Solution 250 mls @ 500 mls/hr 05/10/23 08:41 IV 05/10/23 09:10 BOLUS ONE IV Miscellaneous Supplies 1 each 05/10/23 05:45 Iv Access IV DIRECTED DENEEN Naloxone HCl 0 mg 05/10/23 08:41 Naloxone 0.4 Mg/Ml Vial IVP DIRECTED PRN Sodium Chloride 0 ml 05/10/23 05:31 Normal Saline Flush 10 Ml Syr IVP PRN PRN PFSH Active Problems Active Problems: Problem Status Onset Code Prolonged latent phase of labor O63.0 Anemia affecting O99.019 Z34.90 BMI 33.0-33.9,adult Z68.33 Medical History Medical History (Updated 05/10/23 @ 05:37 by Kelly Mcmahon CNM) Family history of congenital heart defect History of frequent headaches Miscarriage Miscarriage 08/2021. SAB 1st trimester. No D&C. 05/2022. SAB twin gestation. D&C 05/05/22. Nl male karyotype. Positive test The patient return in 2 weeks for a ultrasound for dating and viability. Pulmonary stenosis, valvar infancy Vaginal discharge Surgical History Surgical History (Updated 10/13/22 @ 17:28 by Kelly Mcmahon CNM) Hx of dilation and curettage 05/05/22. [place]/Di twin embryonic demise 11w EGA. D&C at [facility]. Nl male karyotype. 05/29/23. D&C at [facility] for retained POC. Necrotic chorionic villi and decidua. Tobacco Smoking/Tobacco Use Status: Never Alcohol Alcohol Intake: current Alcohol intake frequency: a few times a month Substance Use Substance use: Rarely Substance use type: does not use Prental History History 3 Para 0 Hx # Term Pregnancies 0 Multiple births 0 Hx # Pregnancies 0 Ectopic pregnancies 0 AB induced 0 Hx Number of Living Children 0 AB spontaneous 2 Past Pregnancies Del. Date GA/Weeks # Preg Succ Route Wgt Sex Labor Lgth Anesth esia Location Prov Complic 08/04/21 No 04/30/22 11 Yes No Kimberly Jeffries or Delivery Date: 08/04/21 Last Updated by: Malina Ovalles LPN Miscarriage; presented to [facility] ED Delivery Date: 04/30/22 Last Updated by: Kimberly Ellis MD missed AB of mono chorionic diamniotic twin gestation. Embryonic demised at 11w EGA: D&C 05/05/22 at [facility]. Retained POC: repeat D&C 05/29/22 Vital Signs and Lab Results Vital Signs Most Recent Vital Signs in EMR: Most Recent Vital Signs Temp Pulse Resp BP Pulse Ox 36.7 C 100 H 20 124/77 99 05/10/23 08:28 05/10/23 07:31 05/10/23 07:31 05/10/23 07:31 05/10/23 07:31 Lab Results 05/10/23 05:50 Blood Type / Crossmatch: Patient ABO/Rh A Positive 05/10/23 Antibody Screen NEGATIVE 05/10/23 Complete Blood Count: White Blood Count 18.21 10^3/uL (4.4-10.8) H 05/10/23 05:50 Red Blood Count 4.62 10^6/uL (3.93-5.22) 05/10/23 05:50 Hemoglobin 13.3 g/dL (11.2-15.7) 05/10/23 05:50 Hematocrit 38.4 % (36.0-46.0) 05/10/23 05:50 Platelet Count 199 10^3/uL (130-400) 05/10/23 05:50 Complete Metabolic Panel: No Data to Display Liver Function Panel: No Data to Display Coagulation Panel: No Data to Display Cardiac Panel: No Data to Display Arterial Blood Gas: No Data to Display Venous Blood Gas: No Data to Display Pancreas Panel: No Data to Display Thyroid Panel: No Data to Display Infectious Disease: Coronavirus (COVID-19)(PCR) Negative (Negative) 05/10/23 05:55 Coronavirus 2019 Source Nasal/Nares 05/10/23 05:55 Blood Cultures: No Data to Display Toxicology Panel: Urine Amphetamines Screen Negative (Negative) 04/13/23 15:30 Urine Benzodiazepines Screen Negative (Negative) 04/13/23 15:3 0 Urine Barbiturates Screen Negative (Negative) 04/13/23 15:30 Urine Cocaine Screen Negative (Negative) 04/13/23 15:30 Urine Methadone Screen Negative (Negative) 04/13/23 15:30 Urine Opiates Screen Negative (Negative) 04/13/23 15:30 Ur Tricyclic Antidepressants Screen Negative (Negative) 15:30 Ur Tetrahydrocannabinol (THC) Scrn Negative (Negative) 3 15:30 Panel: No Data to Display Imaging and Studies Imaging and Studies Study information below may be from another EMR and interpreted by another provider. Please see original notes in EMR for more complete details. 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 Ejection fraction is 60%. Wall motion is normal Normal right ventricular size and systolic function Both atria are normal in size Normal mitral valve with moderate regurgitation Normal tricuspid valve with mild to moderate regurgitation. Estimated right ventricular systolic pressure is 40 mmHg Trileaflet aortic valve without stenosis or regurgitation Pulmonic valve is structurally normal, no evidence of pulmonic stenosis, physiologic regurgitation is noted Anesthesia Assessment and Plan Anesthesia History Personal History: No History of Anesthesia Complications Family History: No Family History of Anesthesia Complications Exercise Tolerance Exercise Tolerance: Metabolic Equivalents>4 Pertinent Negatives Pertinent Negatives: No Major Cardiovascular Symptoms or Complaints and No Major Pulmonary Symptoms or Complaints Cardiac & Pulmonary Exam Cardiac Exam: Normal S1/S2 Heart Sounds Pulmonary Exam: Clear Bilateral Breath Sounds Implantable Cardiac Device Does patient have a Pacemaker or an ICD?: No Airway Exam Known Difficult Airway: No Mallampati Class: 2 Mouth Opening: Normal (> 3cm) Thyromental Distance: Greater than 3 cm Neck Range of Motion: Full ROM Neck Circumference: Normal Teeth Condition: Normal Dentition ASA Classification ASA Score: ASA 2 Emergency Case?: No NPO Status NPO Status: Full Stomach Status Status: Confirmed Anesthesia Plan Resuscitation Status: Full Code Anesthesia Technique: Labor Epidural Airway Planned: Natural Airway Monitors Used: Standard Monitors
[2023-05-10] MEDS: FentaNYL/ROPIvacaine 2 mcg/ml and 0.1% 200 ML CADD Cassette EP (09:25)
--- NOTE | 2023-05-10 09:28 | W.ANESNEU ---
Epidural/Spinal Catheter Date Performed: 05/10/23 Procedure Start: 09:15 Procedure Stop: 09:40 Requesting Provider: Kelly Prabhakar Procedure Location: Obstetrics Reason Performed: Labor Epidural Standard Monitors Applied: Blood Pressure, SpO2 and See EMR for corresponding vital signs Patient Position: Sitting Sedation Given (Indicate Dose Given): No Sedation given Patient Mental Status: Awake Sterility: Hand Hygiene, Surgical Cap, Surgical Mask, Sterile Gloves and Chlorhexidine Procedure Location: L3-L4 Interspace Epidural Needle: Tuohy 18 Gauge Needle Length: 3.5 Inch Needle Approach: Midline Epidural Procedure: Skin Prepped, Sterile Drape Placed, 1% Lidocaine to skin and subcutaneous tissue with 25G needle, Tuohy Needle placed, KAJAL to Saline Used, Epidural Catheter Placed, Negative Heme, Negative CSF Flow and Tuohy Needle Removed Catheter Placed?: Catheter Placed Test Dose (Indicate Dose Given): 3ml 1.5% Lidocaine with 1:200K Epinephrine Given and Negative Test Dose Loss of Resistance Depth (cm): 7 Catheter depth at skin (cm): 13 Dressing: Sorbaview Dressing Placed, Mastisol Used and Dressing reinforced with Tape Epidural Provider Bolus (Indicate Dose Given): Total bolus dose given in 3-5 ml divided doses and Total Ropivacaine 0.1% with Fentanyl 2mcg/ml Given from pump. (ml) Dose:: 10 ml from pump Additives (Indicate Dose Given ): None Infusion Medication: Medication Infusion Began Medication Infusion: Ropivacaine 0.1% with Fentanyl 2mcg/ml Maintenance Infusion Rate (ml/hour): 10 PCEA Bolus Dose (ml): 5 Block Level: N/A Paresthesia: None Ultrasound: Not Used Number of Attempts (See previous attempts in note section): 1 Procedure Tolerated: No Complications and Patient tolerated well Procedure Outcome: Successful Procedure Comment:: negative test dose. good relief with dosing. educated on pcea use. all questions answered. Performed By: Anthony Cardenas
[2023-05-10] MEDS: Oxytocin/Normal Saline 30 UNIT/500 ML BAG 2 UNITS IV (09:59)
--- NOTE | 2023-05-10 12:38 | W.ANESNEU ---
Epidural/Spinal Cath. Removal Date Performed: 05/10/23 Procedure Time: 12:17 Catheter Removal Type: Epidural Catheter Procedure Location: Obstetrics Patient Position: Sitting Catheter Removal Procedure: Dressing Removed, Catheter Removed without Resistance and Catheter Tip Intact Paresthesia: None Procedure Tolerated: No Complications and Patient tolerated well Procedure Outcome: Successful Procedure Comment:: First epidural placement with good coverage on left side and right upper. There remained a lower band that went front ot back with no relief despite clinician bolus' and pulling catheter back 2 cm. Discussed with patient and she wishes to proceed with another epidural placement. Upon removal of catheter, I did note three small blood flecks/clot in epidural catheter tip. Perhaps this was causing reduction of spread causing hot spot but unclear. Performed By: Anthony Cardenas Epidural/Spinal Catheter Date Performed: 05/10/23 Procedure Start: 12:25 Procedure Stop: 12:45 Requesting Provider: Kelly Prabhakar Procedure Location: Obstetrics Reason Performed: Labor Epidural Standard Monitors Applied: Blood Pressure, SpO2 and See EMR for corresponding vital signs Patient Position: Sitting Sedation Given (Indicate Dose Given): No Sedation given Patient Mental Status: Awake Sterility: Hand Hygiene, Surgical Cap, Surgical Mask, Sterile Gloves, Sterile Drape/Sheet and Chlorhexidine Procedure Location: L2-L3 Interspace Epidural Needle: Tuohy 18 Gauge Needle Length: 3.5 Inch Needle Approach: Midline Epidural Procedure: Skin Prepped, Sterile Drape Placed, 1% Lidocaine to skin and subcutaneous tissue with 25G needle, Tuohy Needle placed, KAJAL to Saline Used, Epidural Catheter Placed, Negative Heme and Negative CSF Flow Catheter Placed?: Catheter Placed Test Dose (Indicate Dose Given): 3ml 1.5% Lidocaine with 1:200K Epinephrine Given and Negative Test Dose Loss of Resistance Depth (cm): 7 Catheter depth at skin (cm): 12 Dressing: [place] Dressing Placed, Mastisol Used and Dressing reinforced with Tape Epidural Provider Bolus (Indicate Dose Given): Total bolus dose given in 3-5 ml divided doses and Total Ropivacaine 0.1% with Fentanyl 2mcg/ml Given from pump. (ml) Dose:: 5 ml Additives (Indicate Dose Given ): None Infusion Medication: Medication Infusion Began Medication Infusion: Ropivacaine 0.1% with Fentanyl 2mcg/ml Maintenance Infusion Rate (ml/hour): 10 PCEA Bolus Dose (ml): 5 Post Procedure Pain score (0-10): 0 Block Level: N/A Paresthesia: None Ultrasound: Not Used Number of Attempts (See previous attempts in note section): 1 Procedure Tolerated: No Complications and Patient tolerated well Procedure Outcome: Successful Procedure Comment:: Replacement of prior epidural catheter due to right lower hot spot band from front to back. Bolus of 5ml total and patient has complete relief bilaterally, only now feeling pressure, no sharp discomfort. Discussed PCEA use. Pt. denies any leg heaviness or arm/finger numbness/tingling with 5/5 motor strength. Performed By: Anthony Cardenas
--- NOTE | 2023-05-10 16:00 | PGE_ITS ---
Date of service: 05/10/23 Time of Service: 14:00 Pelvic Exam Dilation: 3 Effacement (%): 100 station: -1 Cervix Position: anterior Consistency: soft Pooling: Positive Contractions Monitor Mode: External Contraction Frequency(min): every 3-4 Contraction Duration(sec): 50-60 Intensity: Moderate IUPC resting tone (mmHg): 20 IUPC peak pressure (mmHg): 60 Fetus A Monitor: External (US) Heart Rate Baseline: 140 Presentation: Vertex Variability: Moderate (6-25 BPM) Categories: Category I Accelerations: 15 X 15 Decelerations: None Amniotic Membrane Status: Ruptured Rupture Method: Artifical Amniotic Fluid: Clear Assessment and Plan Assessment and plan (1) Encounter for induction of labor: Status: Acute Assessment and plan: Rest encouraged and anticipate . Objective Abnormal lab results 05/10/23 Range/Units 05:50 WBC 18.21 H (4.4-10.8) 10^3/uL RDW 16.4 H (11.7-14.6) % MPV 11.7 H (8.0-11.0) fL Temp Pulse Resp BP Pulse Ox 99.1 F 102 H 18 129/64 100 05/10/23 14:55 05/10/23 15:59 05/10/23 13:30 05/10/23 15:59 05/10/23 15:57 Laboratory Results WBC 18.21 10^3/uL (4.4-10.8) H 05/10/23 05:50 RBC 4.62 10^6/uL (3.93-5.22) 05/10/23 05:50 Hgb 13.3 g/dL (11.2-15.7) 05/10/23 05:50 Hct 38.4 % (36.0-46.0) 05/10/23 05:50 MCV 83 fL (80-95) 05/10/23 05:50 MCH 28.8 pg (27.0-33.0) 05/10/23 05:50 MCHC 34.6 % (32.0-36.0) 05/10/23 05:50 RDW 16.4 % (11.7-14.6) H 05/10/23 05:50 Plt Count 199 10^3/uL (130-400) 05/10/23 05:50 MPV 11.7 fL (8.0-11.0) H 05/10/23 05:50 COVID-19 Source Nasal/Nares 05/10/23 05:55 SARS-CoV-2 (PCR) Negative (Negative) 05/10/23 05:55 Patient ABO/Rh A Positive 05/10/23 05:50 Antibody Screen NEGATIVE 05/10/23 05:50 Subjective Interval history since last seen: Clover was unable to sleep because she experienced pain in lower right side of abdomen which persisted despite epidural boluses. The pitocin was turned off at 2 MU/Min due to pain. Epidural was replaced by Anthony Cardenas [employer] with good effect. Pitocin was restarted and an IUPC was placed. Results Hemoglobin/Hematocrit: Hgb 13.3 g/dL (11.2-15.7) 05/10/23 05:50 Hct 38.4 % (36.0-46.0) 05/10/23 05:50 Abnormal Lab Findings: Abnormal Labs 05/10/23 05:50 WBC 18.21 H RDW 16.4 H MPV 11.7 H
[2023-05-10] MEDS: Lactated Ringers 250 ML IV (16:20)
--- NOTE | 2023-05-10 16:24 | W.PM.OBNL1 ---
Date of service: 05/10/23 Time of Service: 16:24 Pelvic Exam Dilation: 5 Effacement (%): 100 station: -1 Position: OP Contractions Monitor Mode: External Contraction Frequency(min): every 2-3 Contraction Duration(sec): 60 IUPC resting tone (mmHg): 10 IUPC peak pressure (mmHg): 60 IUPC [place] units: 200 Fetus A Monitor: External (US) Heart Rate Baseline: 140 Presentation: Vertex Variability: Moderate (6-25 BPM) Categories: Category II Accelerations: 15 X 15 Decelerations: Variable Recurrence: Episodic Assessment and Plan Assessment and plan (1) Encounter for induction of labor: Status: Acute Assessment and plan: Discussed progress to 5 cms with Clover with minimal descent. IV rate increased to 250 c/ hour due to concentrated urine. Discussed patients status with Clover. Will reassess in 2 hours for cervical change and continue to monitor heart rate pattern. Objective Abnormal lab results 05/10/23 Range/Units 05:50 WBC 18.21 H (4.4-10.8) 10^3/uL RDW 16.4 H (11.7-14.6) % MPV 11.7 H (8.0-11.0) fL Temp Pulse Resp BP Pulse Ox 99.0 F 114 H 18 129/64 100 05/10/23 16:09 05/10/23 16:23 05/10/23 13:30 05/10/23 15:59 05/10/23 16:23 Laboratory Results WBC 18.21 10^3/uL (4.4-10.8) H 05/10/23 05:50 RBC 4.62 10^6/uL (3.93-5.22) 05/10/23 05:50 Hgb 13.3 g/dL (11.2-15.7) 05/10/23 05:50 Hct 38.4 % (36.0-46.0) 05/10/23 05:50 MCV 83 fL (80-95) 05/10/23 05:50 MCH 28.8 pg (27.0-33.0) 05/10/23 05:50 MCHC 34.6 % (32.0-36.0) 05/10/23 05:50 RDW 16.4 % (11.7-14.6) H 05/10/23 05:50 Plt Count 199 10^3/uL (130-400) 05/10/23 05:50 MPV 11.7 fL (8.0-11.0) H 05/10/23 05:50 COVID-19 Source Nasal/Nares 05/10/23 05:55 SARS-CoV-2 (PCR) Negative (Negative) 05/10/23 05:55 Patient ABO/Rh A Positive 05/10/23 05:50 Antibody Screen NEGATIVE 05/10/23 05:50 Subjective Interval history since last seen: Clover slept well and has been using the peanut ball and turning side to side. Straight cathed for 100 cc. She awoke with pelvic pressure. Results Hemoglobin/Hematocrit: Hgb 13.3 g/dL (11.2-15.7) 05/10/23 05:50 Hct 38.4 % (36.0-46.0) 05/10/23 05:50 Abnormal Lab Findings: Abnormal Labs 05/10/23 05:50 WBC 18.21 H RDW 16.4 H MPV 11.7 H
--- NOTE | 2023-05-10 18:14 | PGE_ITS ---
Date of service: 05/10/23 Time of Service: 18:14 Pelvic Exam Dilation: 5 Effacement (%): 100 station: -2 Cervix Position: anterior Consistency: soft Contractions Monitor Mode: External Contraction Frequency(min): every 3 minutes Contraction Duration(sec): 60 Intensity: Strong IUPC resting tone (mmHg): 10 IUPC peak pressure (mmHg): 80 IUPC [place] units: 200 Fetus A Monitor: External (US) Heart Rate Baseline: 150 Presentation: Vertex Variability: Moderate (6-25 BPM) Categories: Category I FHR Rhythm: Regular Accelerations: 15 X 15 Decelerations: Variable Recurrence: Episodic Assessment and Plan Assessment and plan (1) Encounter for induction of labor: Status: Acute Assessment and plan: I discussed slow progress and lack of descent and Prerna and her partner Ellis. I reviewed the option of continued assessment or esarean . prerna is uncomfortable and complains of a lot of pressure and she would like to proceed with . Dr Parham spoke with prerna and consent signed. prepare for . Objective Abnormal lab results 05/10/23 Range/Units 05:50 WBC 18.21 H (4.4-10.8) 10^3/uL RDW 16.4 H (11.7-14.6) % MPV 11.7 H (8.0-11.0) fL Temp Pulse Resp BP Pulse Ox 98.6 F 109 H 20 134/73 100 05/10/23 18:02 05/10/23 18:00 05/10/23 16:30 05/10/23 18:00 05/10/23 17:33 Laboratory Results WBC 18.21 10^3/uL (4.4-10.8) H 05/10/23 05:50 RBC 4.62 10^6/uL (3.93-5.22) 05/10/23 05:50 Hgb 13.3 g/dL (11.2-15.7) 05/10/23 05:50 Hct 38.4 % (36.0-46.0) 05/10/23 05:50 MCV 83 fL (80-95) 05/10/23 05:50 MCH 28.8 pg (27.0-33.0) 05/10/23 05:50 MCHC 34.6 % (32.0-36.0) 05/10/23 05:50 RDW 16.4 % (11.7-14.6) H 05/10/23 05:50 Plt Count 199 10^3/uL (130-400) 05/10/23 05:50 MPV 11.7 fL (8.0-11.0) H 05/10/23 05:50 COVID-19 Source Nasal/Nares 05/10/23 05:55 SARS-CoV-2 (PCR) Negative (Negative) 05/10/23 05:55 Patient ABO/Rh A Positive 05/10/23 05:50 Antibody Screen NEGATIVE 05/10/23 05:50 Subjective Interval history since last seen: Prerna began feeling a lot of pressure and was examined. The cervix is unchanged and vertex -2 and ballotable. Results Hemoglobin/Hematocrit: Hgb 13.3 g/dL (11.2-15.7) 05/10/23 05:50 Hct 38.4 % (36.0-46.0) 05/10/23 05:50 Abnormal Lab Findings: Abnormal Labs 05/10/23 05:50 WBC 18.21 H RDW 16.4 H MPV 11.7 H
--- NOTE | 2023-05-10 18:16 | W.OBCONSULT ---
Date of service: 05/10/23 Time of Service: 18:16 Assessment and Plan Assessment and plan (1) Prolonged latent phase of labor: Status: Acute (2) Labor abnormality, antepartum: Status: Acute Assessment and plan: Arrest of descent of vertex despite adequate contractions over time. Patient was advised to proceed with a delivery.Preop counseling: She was informed of the risks of procedure including risk of damage to bowel, bladder, and blood vessels during the time of the delivery. If any of those injuries were to occur she may require a repair at the time of surgery or blood transfusion or possible hysterectomy. I reviewed the risk of infection and the administration of IV Abx prior to the surgery. Informed consent was obtained her questions were answered History of Present Illness History of Present Illness Chief Complaint: Arrest of descent, 40w2d EGA Narrative: @ 40+2 wks EGA with prodromal sx ~17 hrs, prior to admission to overnight on 05/09/23. Received Morhphine and was discharged to home to await active labor. She continued with contractions at home and subsequently returned to morning of05/10/23. She underwent AROM and Oxytocin augmentation of labor. Maximum cervical dilation 5cm, vertex -1 to -2 despite adequate contractions as documented by IUPC. FHR Category 1. Pt received an epidural which was initially adequate but after several hours was ineffective for labor analgesia. Pt was counseled by Ingrid Pollock CNM and decided on primary delivery. ? Consults Consult date: 05/10/23 Requesting physician: Kelly Mcmahon Review of Systems Narrative: Patient reports pelvic pain with each contraction and pelvic pressure between contractions All systems reviewed & are unremarkable except as noted in HPI and below Gastrointestinal Gastrointestinal: Reports abdominal pain and Reports nausea PFSH All Active Problems (Updated 05/10/23 @ 18:37 by Kimberly Ellis MD) Labor abnormality, antepartum (Acute) Encounter for induction of labor (Acute) Prolonged latent phase of labor (Acute) Anemia affecting (Acute) (Acute) BMI 33.0-33.9,adult (Acute) Medical History (Updated 05/10/23 @ 18:37 by Kimberly Ellis MD) Family history of congenital heart defect History of frequent headaches Miscarriage Miscarriage 08/2021. SAB 1st trimester. No D&C. 05/2022. SAB twin gestation. D&C 05/05/22. Nl male karyotype. Positive test The patient return in 2 weeks for a ultrasound for dating and viability. Pulmonary stenosis, valvar infancy Vaginal discharge Surgical History (Updated 10/13/22 @ 17:28 by Kelly Mcmahon CNM) Hx of dilation and curettage 05/05/22. [place]/Di twin embryonic demise 11w EGA. D&C at [facility]. Nl male karyotype. 05/29/23. D&C at [facility] for retained POC. Necrotic chorionic villi and decidua. Family History (Updated 10/19/22 @ 17:00 by Kelly Mcmahon CNM) Brother Heart defect, congenital resolved after Maternal Grandmother Diabetes Paternal Grandmother Diabetes Social History (Updated 08/05/21 @ 08:58 by Louise Jeffery RN) Smoking/Tobacco Use Status: Never Smoking risk assessment performed?: Yes Alcohol Intake: current Alcohol Intake frequency: a few times a month Drug use: Rarely Substance use type: does not use Do you feel safe at home: Yes Do you feel safe in your relationship?: Yes Female Reproductive History Menstrual Age of Menarche: 13 Duration of menses: 3-5 days History History 3 Para 0 Hx # Term Pregnancies 0 Multiple births 0 Hx # Pregnancies 0 Ectopic pregnancies 0 AB induced 0 Hx Number of Living Children 0 AB spontaneous 2 Past Pregnancies Del. Date GA/Weeks # Preg Succ Route Wgt Sex Labor Lgth Anesthesia Location Prov [facility] 08/04/21 No 04/30/22 11 Yes No Kimberly Ellis Delivery Date: 08/04/21 Last Updated by: Malina Ovalles LPN Miscarriage; presented to [facility] ED Delivery Date: 04/30/22 Last Updated by: Kimberly Ellis MD missed AB of mono chorionic diamniotic twin gestation. Embryonic demised at 11w EGA: D&C 05/05/22 at [facility]. Retained POC: repeat D&C 05/29/22 Exam Narrative Exam Narrative: Patient sitting up in labor bed breathing through contractions. Const General: in distress Nutritional Appearance: average body habitus Orientation: alert, awake and oriented x3 Neck Neck: normal visual inspection Resp Effort & Inspection: normal respiratory effort Auscultation: clear to auscultation bilaterally Cardio Rate: regular rate Rhythm: regular rhythm GI Inspection: normal to inspection (Gravid) OB/External & Speculum: deferred Skin General skin exam: no rashes or lesions noted Neuro Cognition: normal cognition Speech: speech normal Extrem General: normal to inspection and full ROM Psych Appearance: grossly normal Mental Status: mental status grossly normal Speech and Movement: speech and movement normal Mood: congruent mood Results Last Vital Signs Temp 98.6 F 05/10/23 18:02 Pulse 109 H 05/10/23 18:00 Resp 20 05/10/23 16:30 BP 134/73 05/10/23 18:00 Pulse Ox 100 05/10/23 17:33 Labs 05/10/23 05:50 Labs: Laboratory Results - last 24 hr 05/10/23 05/10/23 05/10/23 05:50 05:50 05:55 WBC 18.21 H RBC 4.62 Hgb 13.3 Hct 38.4 MCV 83 MCH 28.8 MCHC 34.6 RDW 16.4 H Plt Count 199 MPV 11.7 H COVID-19 Source Nasal/Nares SARS-CoV-2 (PCR) Negative Patient ABO/Rh A Positive Antibody Screen NEGATIVE
[2023-05-10] MEDS: AZITHROMYCIN 500 MG in Normal Saline 250 ML 250 MG IVPB (18:30)
[2023-05-10] MEDS: Sodium Citrate 30 ML CUP PO (18:39)
[2023-05-10] MEDS: ceFAZolin 2 GM/50 ML BAG IVPB (19:25)
[2023-05-10] MEDS: Bupivacaine 0.25% Pres-Free 30 ML VIAL (20:05)
--- NOTE | 2023-05-10 20:33 | PDOC.OPNB_ITS ---
Date of service: 05/10/23 Time of Service: 20:33 Operative Note Operative Note Delivery Method: Unscheduled STAT: No and Primary NTSV>37 Weeks: Yes DATE OF PROCEDURE: 05/10/23 PRE-OP DIAGNOSES: IUP 40w2d EGA. Arrest of descent POST-OP DIAGNOSES: same PROCEDURE: primary low transverse delivery SURGEON: Kimberly Ellis Practice Professional: Kelly Mcmahon Anesthesia: spinal Estimated blood loss (mL): 300 Pathology: other (cord blood collected.) Complications: None Patient was transported to: floor Patient's condition: stable Indications: Pt is a G3 now P1 @ 40+2 wks EGA who had 2 days of prodromal labor prior to admission the morning of 05/10/23. She underwent AROM and Oxytocin augmentation of labor. Pt received an epidural which was initially adequate but after several hours was ineffective for labor analgesia. Maximum cervical dilation 5cm, vertex -1 to -2 despite adequate contractions as documented by IUPC. FHR Category 1 throughout labor. Findings: Viable female in OP presentation. Clear amniotic fluid. Apgars 3/6/9. Female. her parents intend to name her Audrey. Weight 7lb 7oz. Placenta nl configuration, 3 vessel cord. Nl uterus, ovaries and fallopian tubes. Procedure Description: Patient was taken to the operating room she is placed in the sitting position and spinal anesthesia was administered without difficulty. She was then placed in the dorsal supine position with a leftward tilt. SCDs and a Richard catheter to gravity drainage were in place. A vaginal prep with Betadine was performed and the patient was prepped and draped in the usual sterile fashion.Surgical timeout was performed. Preop antibiotics were administered. After a adequate level of anesthesia was achieved a Pfannenstiel skin incision was made approximately 2 cm superior to the pubic symphysis using a scalpel and the underlying subcutaneous tissue dissected using Bovie electrocautery to the level of the rectus fascia. The rectus fascia was then nicked in the midline and the fascial incision extended laterally using a combination of Bovie electrocautery and curved Tiwari scissors. 2 Edgard clamps were applied to the superior rectus fascia and the rectus fascia was dissected off of the underlying rectus muscles using Bovie electrocautery and blunt technique. A similar technique was carried out on the inferior rectus fascia. Rectus muscles were then in the midline and the peritoneum entered bluntly. The peritoneal incision was extended laterally using blunt technique. The vesicle- uterine peritoneum over lower uterine segment was incised with curved Tiwari scissors and the bladder flap created digitally. Scalpel was used to incise the lower uterine segment in a transverse fashion. The uterine incision was extended bluntly and the amniotic sac was ruptured with clear amniotic fluid noted. A single gloved hand was placed into the uterine cavity and the head was successfully delivered through the uterine incision followed by the trunk and extremities with the assistance of fundal pressure. The cord was doubly clamped and cut and the infant handed off to the waiting pediatric team. The placenta was extracted with a combination of fundal massage and gentle cord traction. The uterus was exteriorized cleared of all clots and debris and the uterine incision reapproximated with a running lock suture of 0 Vicryl followed by a second imbricating suture of 0 Vicryl. Interrupted 0-Vicryl figure of eight sutures were placed along two sites of bleeding along the left lateral margin of the incision. Final inspection of the uterine incision was performed and the in cision was found to be hemostatic. The uterus was returned to the abdomen and the paracolic gutters cleared of all clots and debris. Uterine incision, bladder flap and the abdominal wall were inspected and noted to be hemostatic. The rectus fascia was reapproximated with a running suture of 0 Vicryl. space within the subcutaneous tissue closed with a running suture of 2-0 Vicryl. The skin incision was reapproximated with a subcuticular closure of 4-0 Vicryl. 20cc of 0.25% Marcaine was infiltrated in the subcutaneous tissue. Steri strips and a Mepilex dressing was applied. The uterus was massaged for any remaining clots and debris. The patient was transported to recovery area in stable condition. All sponge, lap, and needle counts correct x2. [place] Gender: Female weight: 7 lb 7 oz See Nursing Delivery Note for weight and Scores: was slow to transition to external environment. Initally required PPV and then received O2 via nasal canula. transfered to nursery for stabilization..
[2023-05-10] MEDS: Metoclopramide 10 MG/2 ML VIAL IVP (22:51)
[2023-05-11 00:05] VITALS: BP 131/78; PULSE 91; RESP 16; O2SAT 97
[2023-05-11 01:37] VITALS: BP 121/71; PULSE 84
[2023-05-11] MEDS: Ketorolac 30 MG/ML VIAL IVP ×3 (02:04→14:09)
[2023-05-11 07:50] VITALS: BP 122/81; PULSE 91; RESP 16; TEMP 36.4; O2SAT 100
[2023-05-11 07:55] LABS: Absolute Eosinophil Count 0.09 10^3/uL (0.0-0.7); Absolute Lymphocyte Count 1.76 10^3/uL (1.2-3.4); Absolute Monocyte Count 2.19 10^3/uL (0.1-0.8); Basophils % 0.3; Eosinophils % 0.5; HCT 34.2 % (36.0-46.0); HGB 11.6 g/dL (11.2-15.7); Immature Grans % 0.6; Lymphocytes % 10.2; MCH 28.4 pg (27.0-33.0); MCHC 33.9 % (32.0-36.0); MCV 84 fL (80-95); MPV 12.4 fL (8.0-11.0); Monocytes % 12.7; Neutrophils % 75.7; Platelet Count 172 10^3/uL (130-400); RBC 4.08 10^6/uL (3.93-5.22); RDW 16.7 % (11.7-14.6); RDW-SD 51.2 fL; WBC 17.25 10^3/uL (4.4-10.8)
[2023-05-11 08:06] LABS: Absolute Basophil Count 0.05 10^3/uL (0.0-0.2); Absolute Neutrophil Count 13.06 10^3/uL (1.2-6.7)
[2023-05-11] MEDS: Docusate Sodium 100 MG CAP PO (08:11)
[2023-05-11] MEDS: Normal Saline Flush 10 ML SYR IVP ×2 (08:12→14:08)
[2023-05-11 08:22] LABS: Diff Comment Diff Reviewed; RBC Morphology Normal
--- NOTE | 2023-05-11 09:01 | W.PM.OBPNV1 ---
Date of service: 05/11/23 Time of Service: 09:01 Assessment and Plan Assessment and plan (1) Hx of section: Status: Acute Assessment and plan: POD 1. pLTCS. Infant rooming in with her this am and not using oxygen. O2 sats satisfactory. Pt's pain well controlled. Will check temp q4 hrs during day. Repeat cbc in am. Subjective Subjective Interval history: Postop day 1 primary unscheduled delivery. Her had an oxygen requirement immediately after and is slowly weaning to room air while remaining with her throughout the night. Patient reports minimal abdominal pain. No nausea. Patient comments: Pain well controlled and Tolerating diet Patient's Mood: Initially tearful regarding her . Feeling better this morning baby status: Rooming in (Oxygen requirement during the night. Oxygen has been weaned the infant is now at room air.) feeding status: Exclusively breast feeding Exam Physical Exam Vital signs: Temp Pulse Resp BP Pulse Ox 100.4 F H 84 16 121/71 97 05/10/23 20:35 05/11/23 01:37 05/11/23 00:05 05/11/23 01:37 05/11/23 00:05 Vital Signs Reviewed: Yes Notable Details: No temperature recorded at night. This morning temperature: Afebrile Constitutional Constitutional: no acute distress Neck Exam Neck Exam: Normal Respiratory Exam Respiratory Exam: Normal Cardiovascular Exam Cardiovascular Exam: Normal Abdominal Exam Abdomen: Other (Deferred. I did not want to disturb the infant resting on her chest) Rectal Exam Rectal Exam: Not Done Extremities Exam Extremity Exam: Normal (SCDs in place) Skin Exam Skin Exam: Normal Neurological Exam Neurological Exam: Normal Psychiatric Exam Psychiatric Exam: Normal Results Hemoglobin/Hematocrit: Hgb 11.6 g/dL (11.2-15.7) 05/11/23 07:06 Hct 34.2 % (36.0-46.0) L 05/11/23 07:06 Abnormal Lab Findings: Abnormal Labs 05/10/23 05/11/23 05:50 07:06 WBC 18.21 H 17.25 H Hct 34.2 L RDW 16.4 H 16.7 H MPV 11.7 H 12.4 H Absolute Neutrophils 13.06 H Absolute Monocytes 2.19 H
[2023-05-11 11:35] VITALS: BP 113/72; PULSE 92; RESP 16; TEMP 36.8; O2SAT 100
--- NOTE | 2023-05-11 13:34 | OBPPV_ITS ---
Date of service: 05/11/23 Time of Service: 13:34 Assessment and Plan Assessment and plan (1) normal course: Status: Acute Subjective Subjective Interval history: now in crib, on room air with normal oxygen saturation Patient comments: No complaints and Pain well controlled baby status: Doing well, Nursing well and Strong Bonding Observed [place] feeding status: Exclusively breast feeding Exam Physical Exam Vital signs: Temp Pulse Resp BP Pulse Ox 97.5 F L 91 H 16 122/81 100 05/11/23 07:50 05/11/23 07:50 05/11/23 07:50 05/11/23 07:50 05/11/23 07:50 Vital Signs Reviewed: Yes Abdominal Exam Comments: dry sterile dressing in place. 4cm rounded area with staining L lateral margin. No ecchymosis Fundal Exam Fundus: Below Umbilicus (1 fingerbreath.) Rectal Exam Rectal Exam: Not Done Results Hemoglobin/Hematocrit: Hgb 11.6 g/dL (11.2-15.7) 05/11/23 07:06 Hct 34.2 % (36.0-46.0) L 05/11/23 07:06 Abnormal Lab Findings: Abnormal Labs 05/10/23 05/11/23 05:50 07:06 WBC 18.21 H 17.25 H Hct 34.2 L RDW 16.4 H 16.7 H MPV 11.7 H 12.4 H Absolute Neutrophils 13.06 H Absolute Monocytes 2.19 H
[2023-05-11 15:25] VITALS: BP 120/75; PULSE 89; RESP 16; TEMP 36.8; O2SAT 100
--- NOTE | 2023-05-11 17:47 | W.ANESPOSTOP ---
Postoperative Evaluation Date, Time and Location Date Performed: 05/11/23 Time Performed: 17:15 Patient Location: Obstetrics Vital Signs Most Recent Imported Vital Signs: Most Recent Vital Signs Temp Pulse Resp BP Pulse Ox 36.4 C L 91 H 16 122/81 100 05/11/23 07:50 05/11/23 07:50 05/11/23 07:50 05/11/23 07:50 05/11/23 07:50 Pain Score Most Recent Pain Score: Most Recent Pain Score Pain Level [Abdomen] 1 05/11/23 07:50 Pain Level 4 05/11/23 14:09 Assessment Mental Status: Awake (Alert & Oriented to Patient Baseline) Airway and Respiratory Function: Patent airway with normal (patient baseline) respiratory exam Cardiovascular Function: Hemodynamically Stable Hydration Status: Adequately Hydrated Nausea & Vomiting: No Nausea or Vomiting Pain: Pain is tolerable per patient Peripheral Nerve Block: Patient did not receive a nerve block
[2023-05-11 20:20] VITALS: BP 120/75; PULSE 90; RESP 16; TEMP 36.6; O2SAT 100
[2023-05-12 02:00] VITALS: BP 125/78; PULSE 90; RESP 17; TEMP 36.8; O2SAT 100
[2023-05-12 07:50] VITALS: BP 120/79; PULSE 96; RESP 16; TEMP 36.7; O2SAT 97
[2023-05-12] MEDS: Ibuprofen 600 MG TAB PO ×2 (09:07→17:03)
[2023-05-12] MEDS: Acetaminophen 325 MG TAB 650 MG PO ×2 (09:07→17:02)
[2023-05-12] MEDS: Docusate Sodium 100 MG CAP PO (09:08)
[2023-05-12 09:56] LABS: HCT 34.3 % (36.0-46.0); HGB 11.6 g/dL (11.2-15.7); MCH 28.8 pg (27.0-33.0); MCHC 33.8 % (32.0-36.0); MCV 85 fL (80-95); MPV 11.4 fL (8.0-11.0); Platelet Count 191 10^3/uL (130-400); RBC 4.03 10^6/uL (3.93-5.22); RDW-SD 53.2 fL; WBC 12.84 10^3/uL (4.4-10.8)
--- NOTE | 2023-05-12 10:45 | W.PM.OBPNV1 ---
Date of service: 05/12/23 Time of Service: 10:45 Assessment and Plan Assessment and plan (1) Hx of section: Status: Acute Assessment and plan: POD 2 pLTCS. Pain well controlled, counselor will encourage pumping and continuing to . Will discuss discharge with pt later today. Subjective Subjective Interval history: POD2 pLTCS arrest of descent. Not much sleep last night. Infant not well. Pt reports that received formula this morning and is now content. Pt has been instructed to breastfeed. Patient comments: Pain well controlled, Tolerating diet and Other [place] baby status: Rooming in (Feeding not going well. ) Exam Physical Exam Vital signs: Temp Pulse Resp BP Pulse Ox 98.2 F 90 17 125/78 100 05/12/23 02:00 05/12/23 02:00 05/12/23 02:00 05/12/23 02:00 05/12/23 02:00 Vital Signs Reviewed: Yes Notable Details: Pt has remained afebrile overnight. CBC pending. Constitutional Constitutional: no acute distress HEENT Exam HEENT Exam: Normal Respiratory Exam Respiratory Exam: Normal Cardiovascular Exam Cardiovascular Exam: Normal Abdominal Exam Abdomen: Tender (slightly tender) Comments: dressing remains intact Fundal Exam Fundus: Below Umbilicus Rectal Exam Rectal Exam: Not Done Extremities Exam Extremity Exam: Normal Back/Spine/Pelvis Exam Back Exam: Not Done Skin Exam Skin Exam: Normal Neurological Exam Neurological Exam: Normal Psychiatric Exam Psychiatric Exam: Normal Results Hemoglobin/Hematocrit: Hgb 11.6 g/dL (11.2-15.7) 05/12/23 09:45 Hct 34.3 % (36.0-46.0) L 05/12/23 09:45 Abnormal Lab Findings: Abnormal Labs 05/10/23 05/11/23 05/12/23 05:50 07:06 09:45 WBC 18.21 H 17.25 H 12.84 H Hct 34.2 L 34.3 L RDW 16.4 H 16.7 H 17.0 H MPV 11.7 H 12.4 H 11.4 H Absolute Neutrophils 13.06 H Absolute Monocytes 2.19 H
--- NOTE | 2023-05-12 11:48 | W.PM.OBDISCH ---
Date of service: 05/12/23 Time of Service: 11:48 DS: Diagnosis Discharge Diagnosis (1) Hx of section: Status: Acute Asessment and Plan: Unscheduled, primary LTCS for arrest of descent. Discharge Plan Disposition Patient Disposition: Home Condition: Good Discharge Details Reason For Visit: Prolonged latent phase of labor Admit Date/Time: 05/10/23 05:31 Admit Provider: Kelly Mcmahon Attending Provider: Kelly Mcmahon Primary Care Provider: Luis Alfaro III Hospital Course Hospital Course: Pt is a G3 now P1 @ 40+2 wks EGA who had 2 days of prodromal labor prior to admission the morning of 05/10/23. She underwent AROM and Oxytocin augmentation of labor. Pt received an epidural which was initially adequate but after several hours was ineffective for labor analgesia. Maximum cervical dilation 5cm, vertex -1 to -2 despite adequate contractions as documented by IUPC. FHR Category 1 throughout labor. pLTCS performed 05/10/23. Viable female in OP presentation. Clear amniotic fluid. Apgars 3/6/9. Female. Her parents intend to name her Audrey. Weight 7lb 7oz. Placenta nl configuration, 3 vessel cord. Nl uterus, ovaries and fallopian tubes. Infant had an O2 requirement for approximately 12hrs after delivery. Patient roomed in with during entire course. Discharged to home on day 2. Breast and formula feeding. Plan removal of dressing at [facility] next week. OTC Acetaminophen and Ibuprofen for pain. Home Meds and New Rx's Prescriptions: No Action prenat.vits,farhad,[id number] Tablet 1 tab PO DAILY aspirin [Adult Low Dose Aspirin] 81 mg tablet,delayed release (DR/EC) 81 mg PO DAILY ferrous sulfate 325 mg (65 mg iron) tablet 325 mg PO DAILY ondansetron HCl 8 mg tablet 8 mg PO Q8H PRN (Reason: nausea and vomiting) Qty: 10 0RF Discharge Instructions Additional Instructions: [facility] will call you tomorrow to set up an appointment with Dr. Ellis to remove your dressing. Stand Alone Forms: BC Instructions, BC Discharge Instruc Activity:: Activity as Tolerated Equipment/Supplies:: No Equipment Needed Diet:: As Tolerated Discharge Orders Discharge Orders: Discharge Order (Routine); Ordered 10/12/23 Ordered By: Kmiberly Ellis OB:DS Summary Contraception Discussed Contraception Discussed: No, [place] Gender-Baby A: Female weight: 7 lb 7 oz Disposition of Baby A: Home Infant Gender-Baby B: Female Status at Discharge Functional status at discharge: independent ambulation Overall status at discharge: patient is progressing back to baseline Mental Status: mental status grossly normal Speech and Movement: speech and movement normal Mood: congruent mood Affect: normal affect Time Spent with Patient providing and/or coordinating discharge services: Less than 30 minutes Exam Physical Exam Vital signs: Temp Pulse Resp BP Pulse Ox 98.1 F 96 H 16 120/79 97 05/12/23 07:50 05/12/23 07:50 05/12/23 07:50 05/12/23 07:50 05/12/23 07:50 Vital Signs Reviewed: Yes Narrative: Pt remained afebrile while . WBC 12.8 this morning. Constitutional Constitutional: no acute distress Neck Exam Neck Exam: Normal PFSH All Active Problems (Updated 05/11/23 @ 13:36 by Kimberly Ellis MD) normal course (Acute) Hx of section (Acute) 05/10/23. For arrest of descent. F. Labor abnormality, antepartum (Acute) Encounter for induction of labor (Acute) Prolonged latent phase of labor (Acute) Anemia affecting (Acute) (Acute) BMI 33.0-33.9,adult (Acute) Medical History (Updated 05/11/23 @ 13:36 by Kimberly Ellis MD) Vaginal discharge Positive test The patient return in 2 weeks for a ultrasound for dating and viability. Miscarriage 08/2021. SAB 1st trimester. No D&C. 05/2022. SAB twin gestation. D&C 05/05/22. Nl male karyotype. History of frequent headaches Family history of congenital heart defect Miscarriage Pulmonary stenosis, valvar infancy Surgical History (Updated 05/11/23 @ 09:14 by Kimberly Ellis MD) Hx of dilation and curettage 05/05/22. [place]/Di twin embryonic demise 11w EGA. D&C at [facility]. Nl male karyotype. 05/29/23. D&C at [facility] for retained POC. Necrotic chorionic villi and decidua. Family History (Updated 10/19/22 @ 17:00 by Kelly Mcmahon CNM) Brother Heart defect, congenital resolved after Maternal Grandmother Diabetes Paternal Grandmother Diabetes Social History (Updated 08/05/21 @ 08:58 by Louise Jeffery RN) Smoking/Tobacco Use Status: Never Smoking risk assessment performed?: Yes Alcohol Intake: current Alcohol Intake frequency: a few times a month Drug use: Rarely Substance use type: does not use Do you feel safe at home: Yes Do you feel safe in your relationship?: Yes Female Reproductive History Menstrual Age of Menarche: 13 Duration of menses: 3-5 days History History 3 Para 0 Hx # Term Pregnancies 0 Multiple births 0 Hx # Pregnancies 0 Ectopic pregnancies 0 AB induced 0 Hx Number of Living Children 0 AB spontaneous 2 Past Pregnancies Del. Date GA/Weeks # Preg Succ Route Wgt Sex Labor Lgth Anesthesia Location [facility] 08/04/21 No 04/30/22 11 Yes No Kimberly Ellis 05/10/23 40 No No 7 lb 7 oz Female CM, aoc Delivery Date: 08/04/21 Last Updated by: Malina Ovalles LPN Miscarriage; presented to [facility] ED Delivery Date: 04/30/22 Last Updated by: Kimberly Ellis MD missed AB of mono chorionic diamniotic twin gestation. Embryonic demised at 11w EGA: D&C 05/05/22 at [facility]. Retained POC: repeat D&C 05/29/22 Delivery Date: 05/10/23 Last Updated by: Kimberly Ellis MD Arrest of descent, 5-6cm. Audrey DS: Data Vitals/I&O Vitals and I&O: Vital Signs Temperature 98.1 F 05/12/23 07:50 Temperature 97.7 F 05/10/23 05:35 Temperature Source Oral 05/12/23 07:50 Pulse 96 H 05/12/23 07:50 Pulse 82 05/10/23 05:35 Pulse Rhythm Regular 05/12/23 07:50 Respiratory Rate 16 05/12/23 07:50 Respiratory Depth Normal 05/11/23 20:20 Blood Pressure 120/79 05/12/23 07:50 Blood Pressure 143/72 05/10/23 05:35 Blood Pressure Mean 92 05/12/23 07:50 Pulse Oximetry 97 05/12/23 07:50 Oxygen Delivery Method Room Air 05/10/23 06:27 Oxygen Flow Rate 0 05/10/23 06:27 Pain Level 5 05/12/23 09:07 Intake & Output 05/11/23 05/11/23 05/12/23 11:59 23:59 11:59 Intake Total Output Total 850 / 1650 800 / 1650 400 / 400 Balance -840 / -1640 -800 / -1640 -400 / -400 Intake: IV Output: Urine 850 / 1650 800 / 1650 400 / 400 Other: Urine Color Dark Poornima Dark Poornima Light Poornima Urine Appearance Clear Clear Clear Urine Odor None None Voiding Methods Toilet Toilet Data Completed and Pending Labs on day of discharge: Labs from last 24 hours 05/12/23 09:45 WBC 12.84 H RBC 4.03 Hgb 11.6 Hct 34.3 L MCV 85 MCH 28.8 MCHC 33.8 RDW 17.0 H Plt Count 191 MPV 11.4 H
[2023-05-12 11:50] VITALS: BP 113/72; PULSE 76; RESP 16; TEMP 37
[2023-05-12 17:10] VITALS: BP 121/79; PULSE 82; TEMP 36.5
== END 2023-05-12 19:15 | disposition home or self-care (01) | DRG 788 ==
PROVIDERS: Obstetrics & Gynecology Gynecology; Admitting Provider Advanced Practice Midwife; PCP Pediatrics; Visit Provider Advanced Practice Midwife
PROC: 10D00Z1 Extraction of Products of Conception, Low, Open Approach (ICD-10-PCS; CPT 59514; principal; 2023-05-10 19:20)
DX: O99.02 Anemia complicating childbirth (principal); O63.0 Prolonged first stage (of labor); Z37.0 Single live birth; D64.9 Anemia, unspecified; O62.1 Secondary uterine inertia; Z3A.40 40 weeks gestation of pregnancy
CPT/HCPCS: 59514; 36415; 85027; 86850; 86900; 86901; 87635; 85025; J0456; J0690; J1885; J2371; J2405; J2765; J3010